=== PATIENT | male | born 1945 | race African-American/Black ===

== ENCOUNTER 2017-04-19 12:04 | Inpatient (IN) ==
[2017-04-19 19:06] LABS: Basophils % 0.4 % (0.0-0.8); Eosinophils # 0.1 10*3/uL (0.0-0.87); Eosinophils % 1.2 % (0.00-10.9); Hematocrit 35.4 VOL% (42.0-52.0); Hemoglobin 11.6 GM/DL (14.0-18.0); Immature Granulocytes % 0.4 %; Immature Granulocytes Absolute 0.03 #; Lymphocytes # 2.8 10*3/uL (1.4-4.0); Lymphocytes % 41.7 % (21.2-54.2); Mean Corpuscular HGB Conc 32.8 GM/DL (32-36); Mean Corpuscular Hemoglobin 31 PG (27-34); Mean Corpuscular Volume 93.7 FL (87-102); Mean Platelet Volume 9.8 FL (9.6-12.0); Monocytes # 0.7 10*3/uL (0.11-0.8); Monocytes % 9.6 % (1.7-12.7); Neutrophils # 3.2 10*3/uL (1.4-7.4); Neutrophils % 46.7 % (38.7-73.9); Platelet Count 203 T/CUMM (130-400); Red Blood Count 3.78 MC/CUMM (3.8-5.5); Red Cell Distribution Width 13.8 % (9.3-17.3); White Blood Count 6.8 T/CUMM (4-12)
[2017-04-19] MEDS: HEPARIN DRIP 25,000 UNITS/500 ML PREMIX IV SCH (19:20)
[2017-04-19] MEDS: SODIUM CHLORIDE 0.9% 1,000 ML IV SCH (19:20)
--- NOTE | 2017-04-19 19:40 | XRay Report ---
History: Coronary artery disease Date: 04/19/2017 Study: Chest x-ray AP portable Comparison exam: No previous The cardiac silhouette is not enlarged. There is no mediastinal mass. There is mild aortic arch calcification. The pulmonary vasculature is not engorged. The lungs and pleural spaces are clear. Osseous structures are unremarkable. Impression: No acute cardiopulmonary process. Shallow breath PROCEDURE INTERPRETED AT [facility] DEPARTMENT OF RADIOLOGY Final Report Signed by: Dr. Niharika Gross
[2017-04-19] MEDS ORDERED: HALOPERIDOL 5 MG/ML AMP IM ONE (20:44)
[2017-04-20 03:21] LABS: Basophils % 0.6 % (0.0-0.8); Eosinophils # 0.1 10*3/uL (0.0-0.87); Eosinophils % 1.4 % (0.00-10.9); Hemoglobin 11.1 GM/DL (14.0-18.0); Immature Granulocytes % 0.3 %; Immature Granulocytes Absolute 0.02 #; Lymphocytes # 3.1 10*3/uL (1.4-4.0); Lymphocytes % 43.4 % (21.2-54.2); Mean Corpuscular HGB Conc 33.6 GM/DL (32-36); Mean Corpuscular Hemoglobin 31 PG (27-34); Mean Corpuscular Volume 91.7 FL (87-102); Mean Platelet Volume 9.9 FL (9.6-12.0); Monocytes # 0.6 10*3/uL (0.11-0.8); Monocytes % 7.9 % (1.7-12.7); Neutrophils # 3.3 10*3/uL (1.4-7.4); Neutrophils % 46.4 % (38.7-73.9); Platelet Count 190 T/CUMM (130-400); Red Cell Distribution Width 13.7 % (9.3-17.3); White Blood Count 7.1 T/CUMM (4-12)
[2017-04-20 03:32] LABS: INR 1.1; PT Patient Result 11.2 SECS
[2017-04-20 03:33] LABS: Partial Thromboplastin Time 46.8 SECS (0-40)
[2017-04-20 08:27] LABS: INR 1.1; PT Patient Result 11.2 SECS
[2017-04-20 08:35] LABS: Partial Thromboplastin Time 46.1 SECS (0-40)
--- NOTE | 2017-04-20 10:03 | Cardiothoracic History & Phys ---
Assessment and Plan - Time spent with patient Time spent with patient: Greater than 30 minutes (1) Myocardial infarction Status: Acute Assessment and plan: Risk Model and Variables - STS Adult Cardiac Surgery Database Version 2.81 RISK SCORES About the STS Risk Calculator Procedure: CAB Only Risk of Mortality: 1.931% Morbidity or Mortality: 21.484% Long Length of Stay: 11.342% Short Length of Stay: 27.127% Permanent Stroke: 3.622% Prolonged Ventilation: 15.086% DSW Infection: 0.721% Renal Failure: 3.955% Reoperation: 8.109% 71-year-old gentleman transferred here from [facility] for cardiac surgery. The patient has three-vessel disease with completely occluded circumflex artery that is backfilling from collaterals from the right coronary artery. He presented with non-STEMI. Currently the patient is a symptomatic. The patient by report used to take Plavix in the past for his peripheral artery disease and he stopped it however he was given a dose unclear how much prior to that cath. At this point and since the patient is asymptomatic I will plan on doing his surgery on April 22 after I obtain platelet function tests. Risks benefits and alternatives of the surgery were discussed in details with the patient and the family and the understand and willing and eager to proceed. Of note the patient had a psychotic reaction to Versed that he was given during the cath procedure. We will avoid any benzodiazepines during his hospital stay. Current Visit: Yes History of Present Illness Chief complaint: Non-ST elevation myocardial for History of present illness: Mr. Bermudez is a 71 year old male who lives alone he has a history of CVA in the remote past most recently he started to have increasing shortness of breath and chest pain. He presented to [facility] at which point he was taken to the Department Clinician and was found to have a completely occluded circumflex artery as well as severe stenosis of his right main as well as left anterior descending arteries. At this point the patient is asymptomatic. I was consulted to evaluate if he is a surgical candidate. I transferred him to [place] for surgical intervention. Home Medications Medication Instructions Recorded Confirmed Type Amlodipine Besylate [Amlodipine 5 mg PO DAILY 04/19/17 04/19/17 History Besylate] Losartan/Hydrochlorothiazide 12.5 - 100 mg PO DAILY 04/19/17 04/19/17 History [Losartan-Hctz 100-12.5 mg Tab] Sertraline HCl [Sertraline HCl] 50 mg PO DAILY 04/19/17 04/19/17 History Aspirin [Aspirin EC] 81 mg PO DAILY 04/20/17 04/20/17 History Allergies Allergy/AdvReac Type Severity Reaction Status Date / Time No Known Allergies Allergy Verified 04/19/17 19:02 Medical,Surgical,& Family Hx - Medical History Cardio: History of: Cerebrovascular Disease, CHF, CAD, Hypertension, [place] Psychological: History of: Anxiety Disorders, Behavior Problems, Depression Neurology: History of: Cerebrovascular Accident, TIA HEENT: History of: Eye Problem (glasses), Glaucoma Respiratory: History of: COPD Gastrointestinal: History of: GERD Musculoskeletal: History of: Back/Neck Problems Hematology: History of: Clotting Problems (DVT right left 10 years ago) - Surgical History Cardiac Surgeries: Sugical HX of: Cardiac Catheterization (at [place], transferred for CABG on Saturday) - Family History Family History: Reports;: Family Heart Disease (mother 7 father) - Social History Smoking Status: Current every day smoker Frequency of Alcohol Use: None Type of Drug Use: None Cardiology Physical Exam - Constitutional Vitals: Vital Signs Temp Pulse Resp BP Pulse Ox 97 F L 53 L 15 161/78 93 L 04/20/17 04:00 04/20/17 06:00 04/20/17 06:00 04/20/17 06:00 04/20/17 06:00 Intake and Output 04/19/17 04/20/17 04/20/17 22:59 06:59 14:59 Intake Total 120 / 120 30 / 30 Output Total 100 / 100 175 / 175 Balance -100 / -100 -55 / -55 30 / 30 Intake: IV 120 / 120 30 / 30 Heparin Drip 25,000 Units 120 / 120 30 / 30 /500 ml25,000 units In 500 ml @ 12 UNITS/KG/HR 13.824 mls/hr IV TITRATE JOSSY Rx#:[id number] Output: Urine 100 / 100 175 / 175 Other: Voiding Method Urinal Urinal # Voids 0 Weight 57.6 kg 60.9 kg General appearance: normal weight, other (Anxious with some hand tremors) - Head Head exam: Present: normal inspection - ENT ENT exam: Present: normal exam - Neck Neck exam: Present: normal inspection - Respiratory Respiratory exam: Present: prolonged expiratory phase, wheezes - Cardiovascular Cardiovascular exam: Present: regular rate and rhythm - GI/Abdominal GI/Abdominal exam: Present: normal bowel sounds Result/EKG - Labs CBC & BMP: 04/20/17 03:09 Labs: Laboratory Results - last 24 hr 04/19/17 04/20/17 04/20/17 18:57 03:09 03:09 WBC 6.8 7.1 RBC 3.78 L 3.60 L Hgb 11.6 L 11.1 L Hct 35.4 L 33.0 L MCV 93.7 91.7 MCH 31 31 MCHC 32.8 33.6 RDW 13.8 13.7 Plt Count 203 190 MPV 9.8 9.9 Neut % (Auto) 46.7 46.4 Lymph % (Auto) 41.7 43.4 [place] % (Auto) 9.6 7.9 Eos % (Auto) 1.2 1.4 Baso % (Auto) 0.4 0.6 Neut # (Auto) 3.2 3.3 Lymph # (Auto) 2.8 3.1 [place] # (Auto) 0.7 0.6 Eos # (Auto) 0.1 0.1 Baso # (Auto) 0.0 0.0 Immature Gran % 0.4 0.3 Nucleated RBC % 0.0 0.0 Immature Gran # 0.03 0.02 Nucleated RBCs # 0.00 0.00 INR 1.1 PT Patient/Control Mix 11.2 Circ Anticoag PTT 46.8 H 04/20/17 06:58 WBC RBC Hgb Hct MCV MCH MCHC RDW Plt Count MPV Neut % (Auto) Lymph % (Auto) [place] % (Auto) Eos % (Auto) Baso % (Auto) Neut # (Auto) Lymph # (Auto) [place] # (Auto) Eos # (Auto) Baso # (Auto) Immature Gran % Nucleated RBC % Immature Gran # Nucleated RBCs # INR 1.1 PT Patient/Control Mix 11.2 Circ Anticoag PTT 46.1 H
--- NOTE | 2017-04-20 10:21 | EKG Report ---
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
[2017-04-20 10:24] LABS: Calcium 8.4 MG/DL (8.5-10.1); Osmolality,Calculated 277.7 MOS/KG (273-304); Potassium 3.9 MMOL/L (3.5-5.1)
[2017-04-20 10:27] LABS: Troponin I Only 2.09 NG/ML (0.00-0.045)
[2017-04-20 13:02] LABS: PT Patient Result 10.8 SECS
[2017-04-20] MEDS: amLODIPine 5 MG TABLET PO SCH (13:45)
[2017-04-20] MEDS: LOSARTAN/HCTZ 50-12.5 MG TABLET PO SCH (13:45)
[2017-04-20] MEDS: ASPIRIN EC 81 MG TABLET PO SCH (13:45)
[2017-04-20] MEDS ORDERED: hydrALAZINE 20 MG/1 ML VIAL IV ONE (15:23)
[2017-04-20] MEDS ORDERED: MORPHINE 2 MG/1 ML SYRINGE ONE ×2 (15:57→15:58)
[2017-04-20] MEDS ORDERED: NITROGLYCERIN SL 0.4 MG TABLET SL PRN (15:58)
[2017-04-20] MEDS ORDERED: NITROGLYCERIN SL 0.4 MG TABLET SL ONE (15:58)
[2017-04-20] MEDS ORDERED: MORPHINE 2 MG/1 ML SYRINGE IV ONE (16:00)
[2017-04-20] MEDS ORDERED: NITROGLYCERIN DRIP 50 MG/250 ML BOTTLE IV ONE (16:01)
--- NOTE | 2017-04-20 16:04 | EKG Report ---
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
[2017-04-20] MEDS ORDERED: MORPHINE 10 MG/1 ML VIAL IV PRN (16:09)
[2017-04-20] MEDS: NITROGLYCERIN DRIP 50 MG/250 ML BOTTLE IV SCH (16:10)
--- NOTE | 2017-04-20 16:17 | Cardiology Consult Note ---
Assessment and Plan (1) Non-STEMI (non-ST elevated myocardial infarction) Status: Acute Current Visit: Yes (2) Coronary artery disease Status: Acute Current Visit: Yes (3) Hypertension Status: Chronic Current Visit: Yes (4) Hyperlipidemia Status: Chronic Current Visit: Yes (5) Renal insufficiency Status: Chronic Current Visit: Yes (6) History of stroke Status: Chronic Current Visit: Yes History of Present Illness - Data of Consult Patient: new to practice Consult date: 04/20/17 Requesting Physician: Amador Mesa - Consult Narrative Reason for consult: CAD History of present illness: The patient is evaluated emergently in the ICU when a "heart alert" was called. Food Demonstrator: Dr. Curtis The patient is a 71-year-old black male who had no known coronary artery disease until recently, when he was admitted to [facility] with chest pain, and diagnosed with a non-ST elevation myocardial infarction. Comorbidities include hypertension, hyperlipidemia, possible dementia. He has a history of stroke or TIA in the remote past without residual neurologic deficit that he can describe. He underwent cardiac catheterization which revealed three-vessel coronary artery disease (proximal LAD 80-90% stenosis, obtuse marginal artery 100% stenosis with left to left collateralization, RCA 90% stenosis, LV gram EF 55% with inferolateral akinesis or dyskinesis). I do not see any record of an echocardiogram and carotid ultrasound from [facility]. The patient was transferred to [facility] in anticipation of Bypass surgery. He did receive some Plavix and there is a wait time imposed for this reason. In general, the patient cannot remember when he started having chest pain or how long he had been experiencing it prior to admission. It is described as a "pain " that he cannot further characterize, without clear radiation or associated symptoms. In the hospital today, while at rest he did develop some chest pain. We gave him nitroglycerin and this seemed to improve his symptoms. He is currently feeling much better. There was some associated ST depression on lead V5 through V6 which is new since admission. He denies any other recent acute illness. He has no other complaints today. Reportedly had a psychotic reaction to Versed in the [employer] at [place]. Impression and plan: 1. Coronary artery disease-this is three-vessel disease. He is anticipating coronary artery bypass grafting. He is currently on a heparin drip and has been experiencing some postinfarct angina. We are going to initiate a nitroglycerin drip. We can always consider adding Integrilin if necessary. I am going to order an echocardiogram and carotid ultrasound. 2. Hypertension-he is currently not on a beta-andie, presumably because he was bradycardic upon admission. We will see how he responds to the nitroglycerin drip and if necessary we will escalate antihypertensives if necessary. 3. Hyperlipidemia-we will treat with high-dose statins. CC: Amador Mesa - Home Medications and Allergies Home Medications: Home Medications Medication Instructions Recorded Confirmed Type Amlodipine Besylate [Amlodipine 5 mg PO DAILY 04/19/17 04/19/17 History Besylate] Losartan/Hydrochlorothiazide 12.5 - 100 mg PO DAILY 04/19/17 04/19/17 History [Losartan-Hctz 100-12.5 mg Tab] Sertraline HCl [Sertraline HCl] 50 mg PO DAILY 04/19/17 04/19/17 History Aspirin [Aspirin EC] 81 mg PO DAILY 04/20/17 04/20/17 History Allergies/Adverse Reactions: Allergies Allergy/AdvReac Type Severity Reaction Status Date / Time No Known Allergies Allergy Verified 04/19/17 19:02 12 point system: reviewed and no additional remarkable complaints except as stated Medical,Surgical,& Family Hx - Medical History Cardio: History of: Cerebrovascular Disease, CHF, CAD, Hypertension, [place] Psychological: History of: Anxiety Disorders, Behavior Problems, Depression Neurology: History of: Cerebrovascular Accident, TIA HEENT: History of: Eye Problem (glasses), Glaucoma Respiratory: History of: COPD Gastrointestinal: History of: GERD Musculoskeletal: History of: Back/Neck Problems Hematology: History of: Clotting Problems (DVT right left 10 years ago) - Surgical History Cardiac Surgeries: Sugical HX of: Cardiac Catheterization (at [place], transferred for CABG on Saturday) - Family History Family History: Reports;: Family Heart Disease (mother 7 father) - Social History Smoking Status: Current every day smoker Frequency of Alcohol Use: None Type of Drug Use: None Marital Status: Lives With:: Alone Functional capacity: independent ambulation Physical Examination Vital Signs Temp Pulse Resp BP Pulse Ox 98.4 F 51 L 16 124/73 99 04/19/17 18:56 04/19/17 18:56 04/19/17 18:56 04/19/17 18:56 04/19/17 18:56 Other: General appearance: normal weight, no acute distress - Head Head exam: Present: normal inspection, normocephalic, atraumatic. Absent: hematoma, laceration - Eye Eye exam: Present: EOMI. Absent: conjunctival injection, nystagmus, periorbital swelling, scleral icterus, laceration to eyelids Pupils: Present: PERRL. Absent: constricted, dilated, fixed, irregular, unequal - ENT ENT exam: Present: normal exam, normal external ear exam - Neck Neck exam: Present: normal inspection. Absent: lymphadenopathy, meningismus, tenderness, thyromegaly - Respiratory Respiratory exam: Present: clear to auscultation bilaterally. Absent: accessory muscle use, chest wall tenderness - Cardiovascular Cardiovascular exam: Present: regular rate and rhythm. Absent: carotid bruit, gallop, JVD, rubs - GI/Abdominal GI/Abdominal exam: Present: normal bowel sounds, soft. Absent: distended, firm , guarding, hernia, mass, tenderness, rebound. - Extremities Exam Extremities exam: Present: normal inspection, normal capillary refill. Absent: calf tenderness, edema - Back Exam Back exam: Present: normal inspection. Absent: muscle spasm, vertebral tenderness - Neurological Exam Neurological exam: Present: alert, oriented X3, grossly intact with mild resting tremor. - Psychiatric Psychiatric exam: Present: normal affect, normal mood - Skin Skin exam: Present: normal color, warm, dry, intact. Absent: cyanosis, diaphoretic, rash, urticaria Result/EKG - Labs CBC & BMP: 04/20/17 03:09 04/20/17 06:51 Lab Results: I have reviewed the past 24 hour labs Labs: Laboratory Results - last 24 hr 04/19/17 04/20/17 04/20/17 18:57 03:09 03:09 WBC 6.8 7.1 RBC 3.78 L 3.60 L Hgb 11.6 L 11.1 L Hct 35.4 L 33.0 L MCV 93.7 91.7 MCH 31 31 MCHC 32.8 33.6 RDW 13.8 13.7 Plt Count 203 190 MPV 9.8 9.9 Neut % (Auto) 46.7 46.4 Lymph % (Auto) 41.7 43.4 [place] % (Auto) 9.6 7.9 Eos % (Auto) 1.2 1.4 Baso % (Auto) 0.4 0.6 Neut # (Auto) 3.2 3.3 Lymph # (Auto) 2.8 3.1 [place] # (Auto) 0.7 0.6 Eos # (Auto) 0.1 0.1 Baso # (Auto) 0.0 0.0 Immature Gran % 0.4 0.3 Nucleated RBC % 0.0 0.0 Immature Gran # 0.03 0.02 Nucleated RBCs # 0.00 0.00 INR 1.1 PT Patient/Control Mix 11.2 Circ Anticoag PTT 46.8 H Sodium Potassium Chloride Carbon Dioxide Anion Gap BUN Creatinine GFR Calculation BUN/Creatinine Ratio Glucose Calculated Osmolality Calcium Magnesium Total Creatine Kinase Troponin I 04/20/17 04/20/17 04/20/17 06:51 06:58 12:47 WBC RBC Hgb Hct MCV MCH MCHC RDW Plt Count MPV Neut % (Auto) Lymph % (Auto) [place] % (Auto) Eos % (Auto) Baso % (Auto) Neut # (Auto) Lymph # (Auto) [place] # (Auto) Eos # (Auto) Baso # (Auto) Immature Gran % Nucleated RBC % Immature Gran # Nucleated RBCs # INR 1.1 1.0 PT Patient/Control Mix 11.2 10.8 Circ Anticoag PTT 46.1 H 49.0 H Sodium 138 Potassium 3.9 Chloride 102 Carbon Dioxide 27 Anion Gap 12.9 BUN 20 H Creatinine 1.50 H GFR Calculation 56 BUN/Creatinine Ratio 13.00 Glucose 92 Calculated Osmolality 277.7 Calcium 8.4 L Magnesium 2.0 Total Creatine Kinase 452 H Troponin I 2.090 H - Diagnostic Findings Procedure: Chest x-ray: report reviewed by me - EKG EKG results: interpreted by me, sinus rhythm (Lateral ST depression)
--- NOTE | 2017-04-20 16:33 | EKG Report ---
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
[2017-04-20 19:22] LABS: PT Patient Result 10.7 SECS
[2017-04-20 19:30] LABS: Partial Thromboplastin Time 48.4 SECS (0-40)
[2017-04-20] MEDS: HEPARIN DRIP 25,000 UNITS/500 ML PREMIX IV SCH (20:14)
[2017-04-20] MEDS: SODIUM CHLORIDE 0.9% 1,000 ML IV SCH (20:14)
--- NOTE | 2017-04-20 21:37 | Ultrasound Report ---
History: History of CVA. Preop CABG Date: 04/20/2017 Study: Carotid duplex ultrasound Comparison exam: No previous similar Color Doppler, wave form analysis, and grayscale analysis of the cervical carotid arteries was performed. There is mild partially calcified plaque in either carotid bulb. Waveform analysis shows proper directional flow of the cervical carotid arteries. There is antegrade flow in either vertebral artery. The distal right ICA measures 5.2 mm diameter; the left measures 4.6 mm diameter. Peak systolic velocities are as follows: Right CCA 52 cm/s Right ICA 103 cm/s Right ECA 167 cm/s Right vertebral 43 cm/s Right IC/CC ratio 2.0 Left CCA 68 cm/s Left ICA 65 cm/s Left ECA 150 cm/s Left vertebral 37 cm/s Left IC/CC ratio 1.0 There is 0-49 % diameter reduction narrowing of either internal carotid artery using indirect NASCET criteria. Ultrasound images were captured and archived. Impression: No hemodynamically significant internal carotid artery stenosis PROCEDURE INTERPRETED AT [facility] DEPARTMENT OF RADIOLOGY Final Report Signed by: Dr. Niharika Gross
[2017-04-20] MEDS: CHLORHEXIDINE 4% SOLN 118 ML BOTTLE TOP SCH (22:44)
[2017-04-21 01:34] LABS: Partial Thromboplastin Time 51.1 SECS (0-40)
[2017-04-21] MEDS: HEPARIN DRIP 25,000 UNITS/500 ML PREMIX IV SCH ×2 (03:13→20:08)
[2017-04-21 03:47] LABS: Basophils # 0.1 10*3/uL (0.0-0.2); Basophils % 0.8 % (0.0-0.8); Eosinophils # 0.1 10*3/uL (0.0-0.87); Eosinophils % 1.7 % (0.00-10.9); Hematocrit 35.3 VOL% (42.0-52.0); Hemoglobin 11.9 GM/DL (14.0-18.0); Immature Granulocytes % 0.2 %; Immature Granulocytes Absolute 0.01 #; Lymphocytes # 2.2 10*3/uL (1.4-4.0); Mean Corpuscular HGB Conc 33.7 GM/DL (32-36); Mean Corpuscular Hemoglobin 30 PG (27-34); Mean Corpuscular Volume 89.6 FL (87-102); Mean Platelet Volume 10.3 FL (9.6-12.0); Monocytes # 0.7 10*3/uL (0.11-0.8); Monocytes % 10.4 % (1.7-12.7); Neutrophils # 3.5 10*3/uL (1.4-7.4); Neutrophils % 53.9 % (38.7-73.9); Platelet Count 220 T/CUMM (130-400); Red Blood Count 3.94 MC/CUMM (3.8-5.5); Red Cell Distribution Width 13.8 % (9.3-17.3); White Blood Count 6.5 T/CUMM (4-12)
[2017-04-21 04:20] LABS: Calcium 9.1 MG/DL (8.5-10.1); Magnesium 2.2 MG/DL (1.8-2.4); Osmolality,Calculated 278.5 MOS/KG (273-304); Potassium 3.7 MMOL/L (3.5-5.1)
[2017-04-21] MEDS ORDERED: HEPARIN/NACL 0.9% 2 UNITS/ML 500 ML IV ONE (06:45)
[2017-04-21] MEDS: LOSARTAN/HCTZ 50-12.5 MG TABLET PO SCH (09:01)
[2017-04-21] MEDS: amLODIPine 5 MG TABLET PO SCH (09:01)
[2017-04-21] MEDS: ASPIRIN EC 81 MG TABLET PO SCH (09:01)
--- NOTE | 2017-04-21 09:10 | EKG Report ---
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
--- NOTE | 2017-04-21 09:50 | Cardiology Progress Note ---
Assessment and Plan (1) Non-STEMI (non-ST elevated myocardial infarction) Status: Acute Current Visit: Yes (2) Coronary artery disease Status: Acute Current Visit: Yes (3) Hypertension Status: Chronic Current Visit: Yes (4) Hyperlipidemia Status: Chronic Current Visit: Yes (5) Renal insufficiency Status: Chronic Current Visit: Yes (6) History of stroke Status: Chronic Current Visit: Yes Cardiology - PN: Subj Interval history: Seismic Prospecting Observer: Dr. Curtis Summary: The patient is a 71-year-old black male who had no known coronary artery disease until recently, when he was admitted to [facility] with non- ST elevation myocardial infarction. Comorbidities include hypertension, hyperlipidemia, possible dementia. He has a history of stroke or TIA in the remote past without residual neurologic deficit that he can describe. He has three-vessel coronary artery disease (proximal LAD 80-90% stenosis, obtuse marginal artery 100% stenosis with right to left collateralization, RCA 90% stenosis, LV gram EF 55% with inferolateral akinesis or dyskinesis). The patient was transferred to [facility] in anticipation of Bypass surgery. He did receive some Plavix and there is a wait time imposed for this reason. Reportedly had a psychotic reaction to Versed in the [employer] at [place]. April 21, 2017: The patient developed some postinfarct angina soon after arrival to our hospital. This is quiesced with the addition of nitroglycerin drip. He has had no recurrent symptoms and has no complaints this morning. He denies chest pain or shortness of breath. Impression and plan: 1. Coronary artery disease-this is three-vessel disease. He is anticipating coronary artery bypass grafting. This is stable on current therapy. 2. Hypertension-currently stable. 3. Hyperlipidemia-we will treat with high-dose statins. Exam (Progress Note) - Constitutional Vitals: Period Temp Pulse Resp BP Sys/Wang Pulse Ox Last 24 Hr 98.6 F-99.6 F 57-74 12-23 99-194/58-142 93-100 Exam: General appearance: normal weight, no acute distress - Head Head exam: Present: normal inspection, normocephalic, atraumatic. Absent: hematoma, laceration - Eye Eye exam: Present: EOMI. Absent: conjunctival injection, nystagmus, periorbital swelling, scleral icterus, laceration to eyelids Pupils: Present: PERRL. Absent: constricted, dilated, fixed, irregular, unequal - ENT ENT exam: Present: normal exam, normal external ear exam - Neck Neck exam: Present: normal inspection. Absent: lymphadenopathy, meningismus, tenderness, thyromegaly - Respiratory Respiratory exam: Present: clear to auscultation bilaterally. Absent: accessory muscle use, chest wall tenderness - Cardiovascular Cardiovascular exam: Present: regular rate and rhythm. Absent: carotid bruit, gallop, JVD, rubs - GI/Abdominal GI/Abdominal exam: Present: normal bowel sounds, soft. Absent: distended, firm , guarding, hernia, mass, tenderness, rebound. - Extremities Exam Extremities exam: Present: normal inspection, normal capillary refill. Absent: calf tenderness, edema - Back Exam Back exam: Present: normal inspection. Absent: muscle spasm, vertebral tenderness - Neurological Exam Neurological exam: Present: alert, oriented X3, grossly intact without resting or intention tremor - Psychiatric Psychiatric exam: Present: normal affect, normal mood - Skin Skin exam: Present: normal color, warm, dry, intact. Absent: cyanosis, diaphoretic, rash, urticaria Result/EKG - Labs CBC & BMP: 04/21/17 03:27 04/21/17 03:27 Lab Results: I have reviewed the past 24 hour labs Labs: Laboratory Results - last 24 hr 04/20/17 04/20/17 04/20/17 06:51 12:47 16:20 WBC RBC Hgb Hct MCV MCH MCHC RDW Plt Count MPV Neut % (Auto) Lymph % (Auto) [place] % (Auto) Eos % (Auto) Baso % (Auto) Neut # (Auto) Lymph # (Auto) [place] # (Auto) Eos # (Auto) Baso # (Auto) Immature Gran % Nucleated RBC % Immature Gran # Nucleated RBCs # INR 1.0 PT Patient/Control Mix 10.8 Circ Anticoag PTT 49.0 H Plt Func Screen - ADP Plt Func Scrn - Epineph Sodium 138 Potassium 3.9 Chloride 102 Carbon Dioxide 27 Anion Gap 12.9 BUN 20 H Creatinine 1.50 H GFR Calculation 56 BUN/Creatinine Ratio 13.00 Glucose 92 Calculated Osmolality 277.7 Calcium 8.4 L Magnesium 2.0 Total Creatine Kinase 452 H 384 H CK-MB (CK-2) 3.1 Troponin I 2.090 H 1.640 H D Blood Type Antibody Screen Crossmatch 04/20/17 04/20/17 04/21/17 19:04 22:52 00:57 WBC RBC Hgb Hct MCV MCH MCHC RDW Plt Count MPV Neut % (Auto) Lymph % (Auto) [place] % (Auto) Eos % (Auto) Baso % (Auto) Neut # (Auto) Lymph # (Auto) [place] # (Auto) Eos # (Auto) Baso # (Auto) Immature Gran % Nucleated RBC % Immature Gran # Nucleated RBCs # INR 1.0 1.0 PT Patient/Control Mix 10.7 11.0 Circ Anticoag PTT 48.4 H 51.1 H Plt Func Screen - ADP Plt Func Scrn - Epineph Sodium Potassium Chloride Carbon Dioxide Anion Gap BUN Creatinine GFR Calculation BUN/Creatinine Ratio Glucose Calculated Osmolality Calcium Magnesium Total Creatine Kinase 303 D CK-MB (CK-2) 3.1 Troponin I 1.640 H Blood Type Antibody Screen Crossmatch 04/21/17 04/21/17 04/21/17 03:26 03:27 03:27 WBC 6.5 RBC 3.94 Hgb 11.9 L Hct 35.3 L MCV 89.6 MCH 30 MCHC 33.7 RDW 13.8 Plt Count 220 MPV 10.3 Neut % (Auto) 53.9 Lymph % (Auto) 33.0 [place] % (Auto) 10.4 Eos % (Auto) 1.7 Baso % (Auto) 0.8 Neut # (Auto) 3.5 Lymph # (Auto) 2.2 [place] # (Auto) 0.7 Eos # (Auto) 0.1 Baso # (Auto) 0.1 Immature Gran % 0.2 Nucleated RBC % 0.0 Immature Gran # 0.01 Nucleated RBCs # 0.00 INR PT Patient/Control Mix Circ Anticoag PTT Plt Func Screen - ADP 226 H Plt Func Scrn - Epineph 115 H Sodium Potassium Chloride Carbon Dioxide Anion Gap BUN Creatinine GFR Calculation BUN/Creatinine Ratio Glucose Calculated Osmolality Calcium Magnesium Total Creatine Kinase CK-MB (CK-2) Troponin I Blood Type A POSITIVE Antibody Screen Negative Crossmatch See Detail 04/21/17 04/21/17 04/21/17 03:27 03:27 03:52 WBC RBC Hgb Hct MCV MCH MCHC RDW Plt Count MPV Neut % (Auto) Lymph % (Auto) [place] % (Auto) Eos % (Auto) Baso % (Auto) Neut # (Auto) Lymph # (Auto) [place] # (Auto) Eos # (Auto) Baso # (Auto) Immature Gran % Nucleated RBC % Immature Gran # Nucleated RBCs # INR PT Patient/Control Mix Circ Anticoag PTT Plt Func Screen - ADP Plt Func Scrn - Epineph Sodium 139 Potassium 3.7 Chloride 103 Carbon Dioxide 22 Anion Gap 17.7 H BUN 19 H Creatinine 1.30 GFR Calculation 67 BUN/Creatinine Ratio 14.00 Glucose 105 Calculated Osmolality 278.5 Calcium 9.1 Magnesium 2.2 Total Creatine Kinase 289 CK-MB (CK-2) 3.4 Troponin I 1.720 H Blood Type A POSITIVE Antibody Screen Crossmatch 04/21/17 07:56 WBC RBC Hgb Hct MCV MCH MCHC RDW Plt Count MPV Neut % (Auto) Lymph % (Auto) [place] % (Auto) Eos % (Auto) Baso % (Auto) Neut # (Auto) Lymph # (Auto) [place] # (Auto) Eos # (Auto) Baso # (Auto) Immature Gran % Nucleated RBC % Immature Gran # Nucleated RBCs # INR PT Patient/Control Mix Circ Anticoag PTT 53.3 H Plt Func Screen - ADP Plt Func Scrn - Epineph Sodium Potassium Chloride Carbon Dioxide Anion Gap BUN Creatinine GFR Calculation BUN/Creatinine Ratio Glucose Calculated Osmolality Calcium Magnesium Total Creatine Kinase CK-MB (CK-2) Troponin I Blood Type Antibody Screen Crossmatch
[2017-04-21] MEDS: CHLORHEXIDINE 4% SOLN 118 ML BOTTLE TOP SCH ×2 (10:36→18:32)
--- NOTE | 2017-04-21 11:12 | Cardiothoracic Progress Note ---
Assessment and Plan (1) Myocardial infarction Status: Acute Assessment and plan: 71-year-old gentleman with a non-ST elevation myocardial infarction with severe 3 vessel coronary artery disease. The patient was transferred to [place] for coronary artery bypass graft. Yesterday he had a very transient episode of chest pain that relieved immediately with nitroglycerin. We will proceed with the surgery on April 22. Current Visit: Yes Exam (Progress Note) - Constitutional Vitals: Period Temp Pulse Resp BP Sys/Wang Pulse Ox Last 24 Hr 98.6 F-99.6 F 57-74 12-23 99-194/58-142 93-100 Result/EKG - Labs CBC & BMP: 04/21/17 03:27 04/21/17 03:27 Labs: Laboratory Results - last 24 hr 04/20/17 04/20/17 04/20/17 12:47 16:20 19:04 WBC RBC Hgb Hct MCV MCH MCHC RDW Plt Count MPV Neut % (Auto) Lymph % (Auto) [place] % (Auto) Eos % (Auto) Baso % (Auto) Neut # (Auto) Lymph # (Auto) [place] # (Auto) Eos # (Auto) Baso # (Auto) Immature Gran % Nucleated RBC % Immature Gran # Nucleated RBCs # INR 1.0 1.0 PT Patient/Control Mix 10.8 10.7 Circ Anticoag PTT 49.0 H 48.4 H Plt Func Screen - ADP Plt Func Scrn - Epineph Sodium Potassium Chloride Carbon Dioxide Anion Gap BUN Creatinine GFR Calculation BUN/Creatinine Ratio Glucose Calculated Osmolality Calcium Magnesium Total Creatine Kinase 384 H CK-MB (CK-2) 3.1 Troponin I 1.640 H D Blood Type Antibody Screen Crossmatch 04/20/17 04/21/17 04/21/17 22:52 00:57 03:26 WBC RBC Hgb Hct MCV MCH MCHC RDW Plt Count MPV Neut % (Auto) Lymph % (Auto) [place] % (Auto) Eos % (Auto) Baso % (Auto) Neut # (Auto) Lymph # (Auto) [place] # (Auto) Eos # (Auto) Baso # (Auto) Immature Gran % Nucleated RBC % Immature Gran # Nucleated RBCs # INR 1.0 PT Patient/Control Mix 11.0 Circ Anticoag PTT 51.1 H Plt Func Screen - ADP 226 H Plt Func Scrn - Epineph 115 H Sodium Potassium Chloride Carbon Dioxide Anion Gap BUN Creatinine GFR Calculation BUN/Creatinine Ratio Glucose Calculated Osmolality Calcium Magnesium Total Creatine Kinase 303 D CK-MB (CK-2) 3.1 Troponin I 1.640 H Blood Type Antibody Screen Crossmatch 04/21/17 04/21/17 04/21/17 03:27 03:27 03:27 WBC 6.5 RBC 3.94 Hgb 11.9 L Hct 35.3 L MCV 89.6 MCH 30 MCHC 33.7 RDW 13.8 Plt Count 220 MPV 10.3 Neut % (Auto) 53.9 Lymph % (Auto) 33.0 [place] % (Auto) 10.4 Eos % (Auto) 1.7 Baso % (Auto) 0.8 Neut # (Auto) 3.5 Lymph # (Auto) 2.2 [place] # (Auto) 0.7 Eos # (Auto) 0.1 Baso # (Auto) 0.1 Immature Gran % 0.2 Nucleated RBC % 0.0 Immature Gran # 0.01 Nucleated RBCs # 0.00 INR PT Patient/Control Mix Circ Anticoag PTT Plt Func Screen - ADP Plt Func Scrn - Epineph Sodium 139 Potassium 3.7 Chloride 103 Carbon Dioxide 22 Anion Gap 17.7 H BUN 19 H Creatinine 1.30 GFR Calculation 67 BUN/Creatinine Ratio 14.00 Glucose 105 Calculated Osmolality 278.5 Calcium 9.1 Magnesium 2.2 Total Creatine Kinase CK-MB (CK-2) Troponin I Blood Type A POSITIVE Antibody Screen Negative Crossmatch See Detail 04/21/17 04/21/17 04/21/17 03:27 03:52 07:56 WBC RBC Hgb Hct MCV MCH MCHC RDW Plt Count MPV Neut % (Auto) Lymph % (Auto) [place] % (Auto) Eos % (Auto) Baso % (Auto) Neut # (Auto) Lymph # (Auto) [place] # (Auto) Eos # (Auto) Baso # (Auto) Immature Gran % Nucleated RBC % Immature Gran # Nucleated RBCs # INR PT Patient/Control Mix Circ Anticoag PTT 53.3 H Plt Func Screen - ADP Plt Func Scrn - Epineph Sodium Potassium Chloride Carbon Dioxide Anion Gap BUN Creatinine GFR Calculation BUN/Creatinine Ratio Glucose Calculated Osmolality Calcium Magnesium Total Creatine Kinase 289 CK-MB (CK-2) 3.4 Troponin I 1.720 H Blood Type A POSITIVE Antibody Screen Crossmatch
--- NOTE | 2017-04-21 16:04 | ECHO Report ---
Samson Bermudez Exam Date: 04/21/2017 09:01 Referring Physician: Technologist: Magui Howard Age: 71 Ht (in): 74 Wt (lb): 134 Gender: M Exam Location: [facility] Echo Indications: CAD, [place], Non STEMI, HTN, hyperlipidemia, renal insuff., Hx. CVA BP: 145 / 62 HR: 74 Rhythm: Other Technical Quality: Fair IMPRESSIONS Normal LV systolic function with regional wall motion as described below, action fraction 55-60%. Grade 1 sort out dysfunction. Mild to moderate concentric left ventricular hypertrophy. Mild mitral and tricuspid regurgitation. Aortic sclerosis without stenosis. MEASUREMENTS (Male / Female) Normal Values 2D ECHO LV Diastolic Diameter PLAX 3.8 cm 4.2 - 5.9 / 3.9 - 5.3 cm LV Systolic Diameter PLAX 2.0 cm LV Fractional Shortening PLAX 47.5 % IVS Diastolic Thickness 1.5 cm 0.6 - 1.0 / 0.6 - 0.9 cm LVPW Diastolic Thickness 1.3 cm 0.6 - 1.0 / 0.6 - 0.9 cm RV Internal Dim ED PLAX 0.0 cm Aortic Root Diameter 3.1 cm LA Systolic Diameter LX 3.0 cm 3.0 - 4.0 / 2.7 - 3.8 cm DOPPLER TR Peak Velocity 206.0 cm/s TR Peak Gradient 17.0 mmHg FINDINGS Left Ventricle Moderately increased septal wall thickness. Mild concentric left ventricular hypertrophy with diastolic dysfunction. Left ventricular ejection fraction is estimated at 55-60 %. The basal to mid inferior wall appears severely hypokinetic if not akinetic, the distal inferior wall is moderately severely hypokinetic. Right Ventricle Normal right ventricular size and systolic function. Right Atrium Normal right atrial size. Left Atrium Normal left atrial size. Mitral Valve Mild mitral valve sclerosis. Mild mitral valve regurgitation. Aortic Valve Mild aortic valve sclerosis without stenosis or regurgitation. Tricuspid Valve Morphologically normal tricuspid valve. Mild tricuspid valve regurgitation. Tricuspid regurgitation velocities suggest a PAP of 27 mmHg. Pulmonic Valve Pulmonic valve not well visualized. Pericardium No pericardial effusion. Aorta Normal size aortic root and proximal ascending aorta. Doretha Rodriguez MD (Electronically Signed) Final Date: 21 Apr 2017 16:03
[2017-04-21 16:08] LABS: ABG Base Excess 2.7 MMOL/L (-2.5-2.5); ABG HCO3 25.1 MMOL/L (20-26); ABG Oxygen Saturation 95.5 % (95-100); ABG PCO2 31.4 MM HG (35-48); ABG PO2 75.6 MM HG (80-95); Allen Test Positive; Pt O2 Delivery Device Room Air
[2017-04-21] MEDS: NITROGLYCERIN DRIP 50 MG/250 ML BOTTLE IV SCH (18:19)
[2017-04-21] MEDS: SODIUM CHLORIDE 0.9% 1,000 ML IV SCH ×2 (20:09→21:51)
[2017-04-21] MEDS: CHLORHEXIDINE 0.12% ORAL RINSE 60 ML BOTTLE SWISH/SPIT SCH (21:49)
[2017-04-22] MEDS ORDERED: CEFUROXIME INJ 1,500 MG in SODIUM CHLORIDE 0.9% 100 ML IV ONE ×2 (00:01→06:00)
[2017-04-22] MEDS ORDERED: TISSUE ADHESIVE 1 EACH APPLICATOR TOP ONE (04:43)
[2017-04-22] MEDS ORDERED: PAPAVERINE 60 MG/2 ML VIAL ONE (04:43)
[2017-04-22] MEDS ORDERED: VANCOMYCIN 1,000 MG VIAL ONE (04:44)
[2017-04-22 05:00] LABS: Basophils % 0.4 % (0.0-0.8); Eosinophils # 0.2 10*3/uL (0.0-0.87); Eosinophils % 2.6 % (0.00-10.9); Hemoglobin 11.5 GM/DL (14.0-18.0); Immature Granulocytes % 0.3 %; Immature Granulocytes Absolute 0.02 #; Lymphocytes # 2.7 10*3/uL (1.4-4.0); Lymphocytes % 36.7 % (21.2-54.2); Mean Corpuscular HGB Conc 33.8 GM/DL (32-36); Mean Corpuscular Hemoglobin 31 PG (27-34); Mean Corpuscular Volume 90.9 FL (87-102); Mean Platelet Volume 10.4 FL (9.6-12.0); Monocytes # 0.8 10*3/uL (0.11-0.8); Monocytes % 10.9 % (1.7-12.7); Neutrophils # 3.6 10*3/uL (1.4-7.4); Neutrophils % 49.1 % (38.7-73.9); Platelet Count 204 T/CUMM (130-400); Red Blood Count 3.74 MC/CUMM (3.8-5.5); Red Cell Distribution Width 13.9 % (9.3-17.3); White Blood Count 7.3 T/CUMM (4-12)
[2017-04-22 05:04] LABS: PT Patient Result 10.6 SECS; Partial Thromboplastin Time 27.6 SECS (0-40)
[2017-04-22 05:17] LABS: Calcium 8.3 MG/DL (8.5-10.1); Magnesium 2.1 MG/DL (1.8-2.4); Osmolality,Calculated 278.7 MOS/KG (273-304)
[2017-04-22] MEDS ORDERED: IPRATROPIUM 500 MCG/2.5 ML NEB RESP TX ONE (05:30)
[2017-04-22] MEDS ORDERED: LORazepam 1 MG TABLET PO ONE (05:30)
[2017-04-22] MEDS ORDERED: FAMOTIDINE 20 MG TABLET PO ONE (05:30)
[2017-04-22] MEDS ORDERED: ALBUTEROL 2.5 MG/3 ML NEB RESP TX ONE (05:38)
[2017-04-22] MEDS ORDERED: LIDOCAINE 2% 5 ML VIAL ONE (06:45)
[2017-04-22] MEDS ORDERED: AMINOCAPROIC ACID 5,000 MG/20 ML VIAL IV ONE (06:45)
[2017-04-22] MEDS ORDERED: MINERAL OIL/PETROLATUM OPH OINT 3.5 GM TUBE ONE (06:45)
[2017-04-22] MEDS ORDERED: NITROGLYCERIN 50 MG/250 ML BOTTLE IV ONE (06:45)
[2017-04-22] MEDS ORDERED: PHENYLEPHRINE 1 MG/10 ML SYRINGE IV ONE (06:45)
[2017-04-22] MEDS ORDERED: ETOMIDATE 20 MG/10 ML VIAL IV ONE (06:45)
[2017-04-22] MEDS ORDERED: CALCIUM CHLORIDE 1,000 MG/10 ML SYRINGE IV ONE (06:45)
[2017-04-22] MEDS ORDERED: KETOROLAC 30 MG/1 ML VIAL ONE (06:45)
[2017-04-22] MEDS ORDERED: ONDANSETRON 4 MG/2 ML VIAL ONE (06:45)
[2017-04-22] MEDS ORDERED: ROCURONIUM 100 MG/10 ML VIAL IV ONE (06:45)
[2017-04-22] MEDS ORDERED: AMIODARONE 150 MG/3 ML VIAL ONE (06:45)
[2017-04-22] MEDS ORDERED: SODIUM BICARBONATE 50 MEQ/50 ML VIAL IV ONE ×2 (06:45→10:28)
[2017-04-22] MEDS ORDERED: PHENYLEPHRINE 20 MG/250 ML PREMIX IV ONE (06:45)
[2017-04-22 07:32] LABS: ABG Base Excess -0.4 MMOL/L (-2.5-2.5); ABG HCO3 22.2 MMOL/L (20-26); ABG Oxygen Saturation 99.3 % (95-100); ABG PCO2 29.6 MM HG (35-48); ABG PH 7.492 (7.35-7.45); ABG PO2 484.9 MM HG (80-95); ABG TCO2 23.1 MMOL/L (23-27); Glucose Heart Surgery 105 MG/DL (74-106); Hemoglobin Heart Surgery 11.4 G/DL (14.0-18.0); Ionized Calcium Arterial 1.11 MMOL/L (1.21-1.46); PCO2 Patient Temp Arterial 29.6 MMHG; PH Patient Temp Arterial 7.492; PO2 Patient Temp Arterial 484.9 MM HG; Patient Temperature 37 CELCIUS; Potassium Heart/CVR 3.6 MMOL/L (3.5-5.1); Sodium Heart/CVR 135 MMOL/L (135-145)
[2017-04-22 08:01] LABS: Apearance,Urine CLEAR (Clear); Bilirubin,Urine Negative (Negative); Blood, Urine Large mg/dL (Negative); Glucose,Urine (UA) Negative (Negative); Ketones,Urine Negative (Negative); Nitrite,Urine Negative (Negative); Protein,Urine Negative; RBC,Urine 63 /HPF (0-4); Squamous Epithelial Cell,Urine Occasional /HPF (0-10); Urine Color Yellow (Yellow); Urine Specific Gravity 1.012 (1.001-1.035); Urine Urobilinogen < 2.0 EU/DL (0.2-1.0); WBC,Urine 2 /HPF (0-6)
[2017-04-22 08:52] LABS: Hemoglobin Heart Surgery 6.6 G/DL (14.0-18.0); PCO2 Patient Temp Venous 28.6 MM HG; PH Patient Temp Venous 7.494; Potassium Heart/CVR 3.7 MMOL/L (3.5-5.1); VBG Base Excess -1.7 MEQ/L (0-4); VBG HCO3 22.1 MEQ/L (24-28); VBG Oxygen Saturation 78.6 %; VBG PCO2 32.6 MMHG (41-51); VBG PH 7.449; VBG PO2 43.2 MMHG (17-40)
[2017-04-22] MEDS ORDERED: POTASSIUM CHLORIDE RIDER 100 ML IV ONE (09:10)
[2017-04-22] MEDS ORDERED: ALBUMIN 5% 12.5 GM/250 ML VIAL IV ONE (09:10)
[2017-04-22 09:36] LABS: Hemoglobin Heart Surgery 7.7 G/DL (14.0-18.0); PCO2 Patient Temp Venous 27.5 MM HG; PH Patient Temp Venous 7.5; PO2 Patient Temp Venous 40.3 MM HG; Potassium Heart/CVR 4.7 MMOL/L (3.5-5.1); VBG Base Excess -1.9 MEQ/L (0-4); VBG HCO3 21.3 MEQ/L (24-28); VBG Oxygen Saturation 83.8 %; VBG PH 7.47; VBG PO2 46.4 MMHG (17-40)
[2017-04-22 10:17] LABS: ABG Base Excess -3.8 MMOL/L (-2.5-2.5); ABG HCO3 20.3 MMOL/L (20-26); ABG Oxygen Saturation 98.8 % (95-100); ABG PCO2 32.9 MM HG (35-48); ABG PH 7.409 (7.35-7.45); ABG PO2 349.7 MM HG (80-95); ABG TCO2 21.3 MMOL/L (23-27); Glucose Heart Surgery 229 MG/DL (74-106); Hemoglobin Heart Surgery 8.8 G/DL (14.0-18.0); Ionized Calcium Arterial 1.18 MMOL/L (1.21-1.46); PCO2 Patient Temp Arterial 32.9 MMHG; PH Patient Temp Arterial 7.409; PO2 Patient Temp Arterial 349.7 MM HG; Patient Temperature 37 CELCIUS; Potassium Heart/CVR 3.7 MMOL/L (3.5-5.1); Sodium Heart/CVR 128 MMOL/L (135-145)
[2017-04-22] MEDS ORDERED: PHENYLEPHRINE DRIP 20 MG/250 ML PREMIX IV ONE (10:27)
[2017-04-22] MEDS ORDERED: MAGNESIUM SULFATE 1 GM/2 ML VIAL ONE (10:28)
[2017-04-22] MEDS ORDERED: ALBUMIN 25% 25 GM/100 ML VIAL IV ONE (10:28)
[2017-04-22] MEDS ORDERED: MANNITOL 12.5 GM/50 ML VIAL IV ONE (10:28)
[2017-04-22] MEDS ORDERED: methylPREDNISolone SOD SUC 1,000 MG/8 ML VIAL ONE (10:28)
[2017-04-22] MEDS ORDERED: PROTAMINE SULFATE 250 MG/25 ML VIAL IV ONE (10:28)
[2017-04-22] MEDS ORDERED: DEXTROSE 5% KCL 20 MEQ 40 MEQ/2,000 ML BAG IV ONE (10:28)
[2017-04-22] MEDS ORDERED: HEPARIN 10,000 UNIT/10 ML VIAL ONE (10:28)
[2017-04-22] MEDS ORDERED: FUROSEMIDE 20 MG/2 ML VIAL ONE (10:28)
[2017-04-22] MEDS ORDERED: POTASSIUM CHLORIDE 20 MEQ/10 ML VIAL ONE (10:28)
[2017-04-22] MEDS ORDERED: SODIUM CHLORIDE 0.9% 250 ML IV PRN (11:01)
[2017-04-22] MEDS ORDERED: CHLORHEXIDINE 4% SOLN 118 ML BOTTLE TOP PRN (11:01)
[2017-04-22] MEDS ORDERED: MORPHINE 10 MG/1 ML VIAL IV PRN (11:01)
[2017-04-22] MEDS ORDERED: MAGNESIUM SULF RIDER 4 GM in PREMIX 1 EACH IV PRN (11:01)
[2017-04-22] MEDS ORDERED: POTASSIUM CHLORIDE RIDER 10 MEQ in PREMIX 1 EACH IV PRN (11:01)
[2017-04-22] MEDS ORDERED: DEXTROSE 50% 25 GM/50 ML VIAL IV PRN ×3 (11:01→13:44)
[2017-04-22] MEDS ORDERED: MIDAZOLAM 2 MG/2 ML VIAL IV PRN (11:01)
[2017-04-22] MEDS ORDERED: ONDANSETRON 4 MG/2 ML VIAL IV PRN (11:01)
[2017-04-22] MEDS ORDERED: CALCIUM CHLORIDE 1,000 MG/10 ML SYRINGE IV PRN (11:01)
[2017-04-22] MEDS ORDERED: INSULIN REGULAR 100 UNIT/ML IV PRN (11:01)
[2017-04-22] MEDS ORDERED: ACETAMINOPHEN 650 MG SUPP RECTAL PRN (11:01)
[2017-04-22] MEDS ORDERED: SEVOFLURANE 1 UNIT/15 MINUTE INH ONE (11:09)
[2017-04-22] MEDS ORDERED: ACETAMINOPHEN 1,000 MG/100 ML VIAL IV ONE (11:10)
[2017-04-22] MEDS ORDERED: LACTATED RINGERS 2,000 ML IV ONE (11:10)
[2017-04-22] MEDS ORDERED: ePHEDrine 50 MG/ML AMP ONE (11:10)
[2017-04-22] MEDS ORDERED: SODIUM CHLORIDE 0.9% 1,000 ML IV ONE (11:10)
[2017-04-22] MEDS ORDERED: SODIUM CHLORIDE 0.9% 250 ML IV ONE (11:10)
[2017-04-22] MEDS: SODIUM CHLORIDE 0.45% 1,000 ML IV SCH ×3 (11:15→22:49)
--- NOTE | 2017-04-22 11:26 | Operative Note ---
Date of procedure: 04/22/17 Pre-op diagnosis: Non-ST elevation myocardial infarction with severe coronary artery disease Post-op diagnosis: same Procedure: Procedure: 1. Conway of right and left great saphenous vein 2. Conway of the left internal mammary artery 3. Institution of cardiopulmonary bypass 4. Coronary artery bypass graft x 3, FINNEY to LAD, saphenous vein graft to the right main coronary artery, saphenous vein graft to the second obtuse marginal artery Findings: Extensive disease was found along the course of the right main proximally as well as locations over the LAD and the circumflex. I was able to find a reasonable target on each vessel. Of note the aorta was found to have extensive soft atheromatous plaques along the ascending aorta. Some debris were noted coming out through the root vent while on suction. Details of the procedure: The patient was brought into the OR table and placed supine and general endotracheal anesthesia was induced without any problems. Timeout was performed. Antibiotics were given. The chest was prepped and draped in the fashion. Midline incision was made on the chest. The sternum was opened. Hemostasis was achieved. I dissected down the left internal mammary artery in its entirety from the first rib all the way down to the xiphisternum. I then inserted and angled chest tube to the left chest. After that, I turned my attention to opening the pericardium. I exposed the heart and aorta. I then started placing the pericardial stitches. Heparin was given. I then cannulating the proximal arch of the aorta. After that I cannulated the right atrium to the IVC. I then proceeded with preparing the mammary. I then made my pericardial window. Started the cardiopulmonary bypass. I inserted the cardioplegia needle. Cross-clamp was applied. Cardioplegia was given. The heart was arrested successfully. I then identified the right main coronary artery. Distal anastomosis was achieved between saphenous vein and the right main coronary artery with a 7-0 Prolene. It was tested and it was in good condition. I then gave 200 cc of cardioplegia down the right main coronary graft. I then moved my attention to the second obtuse margin artery. It was diseased except for the distal segment. I identified that segment and the open-ended. This anastomosis was again achieved between second saphenous vein and the artery. This was tested and it was condition. I then started rewarming the patient and t distal anastomosis was achieved between the FINNEY and LAD. The LAD was diseased proximally and in the midsection. I made anastomosis to distal to that. I then removed the lamp and the heart recovered well to sinus rhythm. I then instituted the proximal anastomosis to the second obtuse marginal graft then to the RCA graft. Hemostasis was achieved. I weaned the patient from bypass in good condition. Protamine was given. Hemostasis was achieved. All counts were correct at the end of the procedure. The patient was decannulated successfully. Chest tube were inserted. The sternum was closed using wires. Subcutaneous tissues closed uterine using running PDS. 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 The patient was transferred to ICU in good condition. Anesthesia: MARYA Surgeon / Physician: Amador Mesa Estimated blood loss: other (CPB) Tourniquet Time (Minutes): 45 Specimens: none sent Condition: stable Disposition: ICU Results - Labs CBC & BMP: 04/22/17 10:13 04/22/17 04:02 Discharge Plan - Discharge Medications No Action Sertraline HCl [Sertraline HCl] 50 mg PO DAILY Losartan/Hydrochlorothiazide [Losartan-Hctz 100-12.5 mg Tab] 12.5 - 100 mg PO DAILY Amlodipine Besylate [Amlodipine Besylate] 5 mg PO DAILY Aspirin [Aspirin EC] 81 mg PO DAILY - Follow Up or Referral - Forms/Instructions
[2017-04-22] MEDS: ASPIRIN EC 81 MG TABLET PO SCH (11:27)
[2017-04-22] MEDS: amLODIPine 5 MG TABLET PO SCH (11:28)
[2017-04-22] MEDS: CHLORHEXIDINE 0.12% ORAL RINSE 60 ML BOTTLE SWISH/SPIT SCH (11:28)
[2017-04-22] MEDS: LOSARTAN/HCTZ 50-12.5 MG TABLET PO SCH (11:28)
[2017-04-22 11:33] LABS: ABG Base Excess -2.3 MMOL/L (-2.5-2.5); ABG HCO3 22.8 MMOL/L (20-26); ABG Oxygen Saturation 97.1 % (95-100); ABG PCO2 40.5 MM HG (35-48); ABG PH 7.368 (7.35-7.45); Glucose Heart Surgery 134 MG/DL (74-106); Hemoglobin Heart Surgery 10.8 G/DL (14.0-18.0); Potassium Heart/CVR 3.5 MMOL/L (3.5-5.1)
[2017-04-22 11:39] LABS: Basophils % 0.3 % (0.0-0.8); Eosinophils # 0.1 10*3/uL (0.0-0.87); Eosinophils % 0.5 % (0.00-10.9); Hematocrit 29.7 VOL% (42.0-52.0); Immature Granulocytes % 0.6 %; Immature Granulocytes Absolute 0.07 #; Lymphocytes # 1.1 10*3/uL (1.4-4.0); Lymphocytes % 8.8 % (21.2-54.2); Mean Corpuscular HGB Conc 33.7 GM/DL (32-36); Mean Corpuscular Hemoglobin 31 PG (27-34); Mean Corpuscular Volume 91.7 FL (87-102); Mean Platelet Volume 10.4 FL (9.6-12.0); Monocytes # 0.8 10*3/uL (0.11-0.8); Monocytes % 6.3 % (1.7-12.7); Neutrophils % 83.5 % (38.7-73.9); Platelet Count 128 T/CUMM (130-400); Red Blood Count 3.24 MC/CUMM (3.8-5.5); Red Cell Distribution Width 14.1 % (9.3-17.3)
--- NOTE | 2017-04-22 11:47 | XRay Report ---
Portable chest Date: 04/22/2017 Clinical history: Endotracheal tube and line placement Comparison: 04/19/2017 Technique: Portable AP sitting chest Findings: Interval median sternotomy with the heart larger in size. The endotracheal tube, nasogastric tube, right IJ CVP line, and mediastinal chest tubes appear to be in satisfactory position. No significant pneumothorax. Progressive parenchymal findings especially at the lung bases with small to moderate right pleural effusion. Degenerative changes noted. Impression: Interval median sternotomy with support devices in satisfactory position. No significant pneumothorax is identified on this supine film. Atelectasis/edema in the lungs with small to moderate right pleural effusion. PROCEDURE INTERPRETED AT [facility] DEPARTMENT OF RADIOLOGY Final Report Signed by: Dr. Caroline Albright
[2017-04-22 11:50] LABS: INR 1.2; PT Patient Result 12.4 SECS; Partial Thromboplastin Time 30.2 SECS (0-40)
[2017-04-22] MEDS: SODIUM CHLORIDE 0.9% 1,000 ML IV PRN ×2 (12:00→15:34)
[2017-04-22 12:03] LABS: Magnesium 1.8 MG/DL (1.8-2.4); Osmolality,Calculated 281.5 MOS/KG (273-304); Potassium 3.6 MMOL/L (3.5-5.1)
[2017-04-22 12:08] LABS: Lactic Acid 4.4 MMOL/L (0.4-2.0)
[2017-04-22] MEDS: POTASSIUM CHLORIDE RIDER 20 MEQ in PREMIX 1 EACH IV PRN ×2 (12:18→14:50)
[2017-04-22] MEDS: ALBUMIN 5% 12.5 GM in PREMIX 1 EACH IV PRN ×4 (13:05→15:53)
[2017-04-22] MEDS ORDERED: GLUCAGON 1 MG VIAL IM PRN (13:44)
[2017-04-22 14:37] LABS: ABG Base Excess -1.6 MMOL/L (-2.5-2.5); ABG HCO3 22.3 MMOL/L (20-26); ABG Oxygen Saturation 96.8 % (95-100); ABG PCO2 34.2 MM HG (35-48); ABG PH 7.432 (7.35-7.45); ABG PO2 94.4 MM HG (80-95); ABG TCO2 23.3 MMOL/L (23-27); Glucose Heart Surgery 142 MG/DL (74-106); Hemoglobin Heart Surgery 8.8 G/DL (14.0-18.0); Potassium Heart/CVR 3.6 MMOL/L (3.5-5.1)
[2017-04-22] MEDS: MAGNESIUM SULF RIDER 2 GM in PREMIX 1 EACH IV PRN ×2 (14:51→17:14)
[2017-04-22] MEDS: INSULIN REGULAR 100 UNIT/ML SUBCUT SCH ×2 (16:04→20:36)
[2017-04-22 17:44] LABS: ABG Base Excess -3.8 MMOL/L (-2.5-2.5); ABG HCO3 21.9 MMOL/L (20-26); ABG Oxygen Saturation 93.9 % (95-100); ABG PCO2 42.3 MM HG (35-48); ABG PH 7.331 (7.35-7.45); ABG PO2 79.2 MM HG (80-95); ABG TCO2 23.1 MMOL/L (23-27); Glucose Heart Surgery 159 MG/DL (74-106); Hemoglobin Heart Surgery 8.1 G/DL (14.0-18.0); Potassium Heart/CVR 4.1 MMOL/L (3.5-5.1)
[2017-04-22] MEDS ORDERED: FUROSEMIDE 40 MG/4 ML VIAL IV ONE (17:48)
[2017-04-22] MEDS: CEFUROXIME INJ 1,500 MG in SODIUM CHLORIDE 0.9% 100 ML IV SCH (18:13)
[2017-04-22 18:41] LABS: ABG Base Excess -4.6 MMOL/L (-2.5-2.5); ABG Oxygen Saturation 92.1 % (95-100); ABG PCO2 40.9 MM HG (35-48); ABG PH 7.328 (7.35-7.45); ABG PO2 69.3 MM HG (80-95); ABG TCO2 22.2 MMOL/L (23-27); Glucose Heart Surgery 163 MG/DL (74-106); Hemoglobin Heart Surgery 9.4 G/DL (14.0-18.0); Potassium Heart/CVR 4.2 MMOL/L (3.5-5.1)
[2017-04-22 20:46] LABS: Lactic Acid 2.3 MMOL/L (0.4-2.0)
[2017-04-22] MEDS ORDERED: CHLORHEXIDINE 0.12% ORAL RINSE 60 ML BOTTLE SWISH/SPIT SCH (21:00)
[2017-04-22 21:03] LABS: Magnesium 2.9 MG/DL (1.8-2.4); Osmolality,Calculated 283.4 MOS/KG (273-304); Potassium 4.2 MMOL/L (3.5-5.1)
[2017-04-22 21:23] LABS: ABG Base Excess -4.3 MMOL/L (-2.5-2.5); ABG HCO3 20.9 MMOL/L (20-26); ABG Oxygen Saturation 93.5 % (95-100); ABG PCO2 38.9 MM HG (35-48); ABG PH 7.348 (7.35-7.45); ABG PO2 72.8 MM HG (80-95); ABG TCO2 22.1 MMOL/L (23-27); Glucose Heart Surgery 136 MG/DL (74-106); Hemoglobin Heart Surgery 9.1 G/DL (14.0-18.0); Potassium Heart/CVR 4.1 MMOL/L (3.5-5.1)
[2017-04-22 21:26] LABS: Basophils % 0.1 % (0.0-0.8); Hemoglobin 8.4 GM/DL (14.0-18.0); Immature Granulocytes % 0.5 %; Immature Granulocytes Absolute 0.07 #; Lymphocytes # 0.4 10*3/uL (1.4-4.0); Mean Corpuscular HGB Conc 33.6 GM/DL (32-36); Mean Corpuscular Hemoglobin 31 PG (27-34); Mean Corpuscular Volume 92.3 FL (87-102); Mean Platelet Volume 10.4 FL (9.6-12.0); Monocytes # 0.6 10*3/uL (0.11-0.8); Monocytes % 4.7 % (1.7-12.7); Neutrophils # 12.1 10*3/uL (1.4-7.4); Neutrophils % 91.7 % (38.7-73.9); Platelet Count 116 T/CUMM (130-400); Red Blood Count 2.71 MC/CUMM (3.8-5.5); Red Cell Distribution Width 14.5 % (9.3-17.3); White Blood Count 13.2 T/CUMM (4-12)
[2017-04-22 22:32] LABS: Band Neutrophils 4 % (0-10); Lymphocytes 7 % (20-55); Platelet Estimate Normal; Segmented Neutrophils 86 % (50-85); Total Cells Counted 100
[2017-04-23] MEDS: INSULIN REGULAR 100 UNIT/ML SUBCUT SCH ×6 (00:10→21:25)
[2017-04-23] MEDS: SODIUM CHLORIDE 0.45% 1,000 ML IV SCH ×2 (01:26→07:59)
[2017-04-23 03:52] LABS: Hematocrit 25.9 VOL% (42.0-52.0); Hemoglobin 8.9 GM/DL (14.0-18.0); Immature Granulocytes % 0.4 %; Immature Granulocytes Absolute 0.06 #; Lymphocytes # 0.6 10*3/uL (1.4-4.0); Lymphocytes % 4.1 % (21.2-54.2); Mean Corpuscular HGB Conc 34.4 GM/DL (32-36); Mean Corpuscular Hemoglobin 31 PG (27-34); Mean Corpuscular Volume 90.9 FL (87-102); Mean Platelet Volume 10.5 FL (9.6-12.0); Monocytes # 0.9 10*3/uL (0.11-0.8); Monocytes % 6.4 % (1.7-12.7); Neutrophils # 12.7 10*3/uL (1.4-7.4); Neutrophils % 89.1 % (38.7-73.9); Platelet Count 126 T/CUMM (130-400); Red Blood Count 2.85 MC/CUMM (3.8-5.5); Red Cell Distribution Width 14.7 % (9.3-17.3); White Blood Count 14.3 T/CUMM (4-12)
[2017-04-23 04:16] LABS: Calcium 7.2 MG/DL (8.5-10.1); Magnesium 2.4 MG/DL (1.8-2.4); Osmolality,Calculated 278.7 MOS/KG (273-304); Potassium 4.3 MMOL/L (3.5-5.1)
[2017-04-23 04:17] LABS: Band Neutrophils 1 % (0-10); Lymphocytes 9 % (20-55); Platelet Estimate Adequate; Segmented Neutrophils 88 % (50-85); Total Cells Counted 100
--- NOTE | 2017-04-23 06:24 | XRay Report ---
XR chest 1V portable Indication: Clinical concern for pneumothorax. Comparison: Chest x-ray 04/22/2017. Technique: Portable AP chest was performed. Findings: Multiple tubes and medical support devices appear stable. Haziness noted in the lung bases has increased on the left suggesting worsening atelectatic change. Upper lungs remain clear. No pneumothorax is present. Overall appearance of the chest is stable. Impression: 1. Stable appearance of chest with exception of minimal worsening of atelectatic change within the left lung base. Right lung base haziness suggesting minimal pleural fluid and/or atelectasis. 04/23/2017 6:20 AM PROCEDURE INTERPRETED AT [facility] DEPARTMENT OF RADIOLOGY Final Report Signed by: Dr. Osman Acevedo
[2017-04-23] MEDS: CEFUROXIME INJ 1,500 MG in SODIUM CHLORIDE 0.9% 100 ML IV SCH ×2 (06:41→18:23)
--- NOTE | 2017-04-23 07:26 | Cardiology Progress Note ---
Assessment and Plan - Time spent with patient Time spent with patient: Greater than 30 minutes (Exam chart review documentation) (1) Non-STEMI (non-ST elevated myocardial infarction) Status: Chronic Current Visit: Yes (2) Coronary artery disease Status: Chronic Current Visit: Yes Qualifiers: Coronary Disease-Associated Artery/Lesion type: [place] artery [place] vs. transplanted heart: [place] heart Associated angina: with unspecified angina Qualified Code(s): I25.119 - Atherosclerotic heart disease of [place] coronary artery with unspecified angina pectoris (3) Hypertension Status: Chronic Current Visit: Yes Qualifiers: Hypertension type: essential hypertension Qualified Code(s): I10 - Essential (primary) hypertension (4) Hyperlipidemia Status: Chronic Current Visit: Yes Qualifiers: Hyperlipidemia type: mixed hyperlipidemia Qualified Code(s): E78.2 - Mixed hyperlipidemia (5) Renal insufficiency Status: Chronic Current Visit: Yes (6) History of stroke Status: Chronic Current Visit: Yes Cardiology - PN: Subj Interval history: Mr. Bermudez is postop day 1 status post 3 vessel coronary artery bypass grafting received a FINNEY to the LAD saphenous vein graft to the right main coronary artery saphenous vein graft to obtuse marginal. He is doing quite well on his chest tubes remain. He has a prominent rub his blood pressures a little elevated we anticipate that he will be out of bed soon and transferred to the floor today. I told him extensively about incentive spirometer. Exam (Progress Note) - Constitutional Vitals: Period Temp Pulse Resp BP Sys/Wang Pulse Ox Last 24 Hr 96.9 F-99.3 F 60-80 10-23 97-166/43-65 91-100 General appearance: normal weight - Head Head exam: Present: normal inspection - Eye Eye exam: Present: EOMI Pupils: Present: DEREK - Respiratory Respiratory exam: Present: clear to auscultation bilaterally (Gave a fairly good effort I do not hear rales) - Cardiovascular Cardiovascular exam: Present: regular rate and rhythm, rubs - GI/Abdominal GI/Abdominal exam: Present: normal bowel sounds - Extremities Exam Extremities exam: Present: other (Typical postoperative slight oozing) - Back Exam Back exam: Present: normal inspection - Neurological Exam Neurological exam: Present: alert, oriented X3 - Psychiatric Psychiatric exam: Present: normal affect, normal mood - Skin Skin exam: Present: normal color, warm, dry Result/EKG - Labs CBC & BMP: 04/23/17 03:38 04/23/17 03:38 Labs: Laboratory Results - last 24 hr 04/21/17 04/22/17 04/22/17 03:27 07:08 07:28 WBC RBC Hgb Hct MCV MCH MCHC RDW Plt Count 84 L D MPV Neut % (Auto) Lymph % (Auto) [place] % (Auto) Eos % (Auto) Baso % (Auto) Neut # (Auto) Lymph # (Auto) [place] # (Auto) Eos # (Auto) Baso # (Auto) Total Counted Immature Gran % Nucleated RBC % Immature Gran # Segmented Neutrophils Band Neutrophils Lymphocytes Monocytes Nucleated RBCs # Platelet Estimate Pappenheimer Bodies INR PT Patient/Control Mix Circ Anticoag PTT Patient Temperature ABG pH ABG pH at Pt Temp ABG pCO2 ABG pCO2 at Pt Temp ABG pO2 ABG pO2 at Pt Temp ABG HCO3 ABG Total CO2 ABG O2 Saturation ABG Base Excess ABG Sodium VBG pH VBG pCO2 VBG pO2 VBG HCO3 VBG Total CO2 VBG O2 Saturation VBG Base Excess Hemoglobin Hematocrit Potassium Glucose Ionized Calcium FiO2 Sodium Chloride Carbon Dioxide Anion Gap BUN Creatinine GFR Calculation BUN/Creatinine Ratio Calculated Osmolality Lactic Acid Calcium Venous Ioniz Calcium Magnesium Urine Color Yellow Urine Appearance Clear Urine pH 6.0 Ur Specific [place] 1.012 Urine Protein Negative Urine Glucose (UA) Negative Urine Ketones Negative Urine Blood Large Urine Nitrate Negative Urine Bilirubin Negative Urine Urobilinogen < 2.0 H Urine Leukocytes Negative Urine RBC 63 Urine WBC 2 Ur Squamous Epith Cells Occasional Ur Culture Indicated? Not indicated Blood Type A POSITIVE Antibody Screen Negative Crossmatch See Detail 04/22/17 04/22/17 04/22/17 07:28 08:50 09:32 WBC RBC Hgb Hct MCV MCH MCHC RDW Plt Count MPV Neut % (Auto) Lymph % (Auto) [place] % (Auto) Eos % (Auto) Baso % (Auto) Neut # (Auto) Lymph # (Auto) [place] # (Auto) Eos # (Auto) Baso # (Auto) Total Counted Immature Gran % Nucleated RBC % Immature Gran # Segmented Neutrophils Band Neutrophils Lymphocytes Monocytes Nucleated RBCs # Platelet Estimate Pappenheimer Bodies INR PT Patient/Control Mix Circ Anticoag PTT Patient Temperature 37 34 35 ABG pH 7.492 H ABG pH at Pt Temp 7.492 7.494 7.500 ABG pCO2 29.6 L ABG pCO2 at Pt Temp 29.6 28.6 27.5 ABG pO2 484.9 H ABG pO2 at Pt Temp 484.9 35.0 40.3 ABG HCO3 22.2 ABG Total CO2 23.1 ABG O2 Saturation 99.3 ABG Base Excess -0.4 ABG Sodium 135 127 L 124 L VBG pH 7.449 7.470 VBG pCO2 32.6 L 30.0 L VBG pO2 43.2 H 46.4 H VBG HCO3 22.1 L 21.3 L VBG Total CO2 23.1 22.3 VBG O2 Saturation 78.6 83.8 VBG Base Excess -1.7 L -1.9 L Hemoglobin 11.4 L 6.6 L D 7.7 L Hematocrit 34.0 L 19.0 L 23.0 L Potassium 3.6 3.7 4.7 Glucose 105 295 H 299 H Ionized Calcium 1.11 L FiO2 80.00 80.00 Sodium Chloride Carbon Dioxide Anion Gap BUN Creatinine GFR Calculation BUN/Creatinine Ratio Calculated Osmolality Lactic Acid Calcium Venous Ioniz Calcium 0.83 1.10 Magnesium Urine Color Urine Appearance Urine pH Ur Specific [place] Urine Protein Urine Glucose (UA) Urine Ketones Urine Blood Urine Nitrate Urine Bilirubin Urine Urobilinogen Urine Leukocytes Urine RBC Urine WBC Ur Squamous Epith Cells Ur Culture Indicated? Blood Type Antibody Screen Crossmatch 04/22/17 04/22/17 04/22/17 10:13 10:13 11:25 WBC 12.0 D RBC 3.24 L Hgb 10.0 L Hct 29.7 L MCV 91.7 MCH 31 MCHC 33.7 RDW 14.1 Plt Count 74 L 128 L D MPV 10.4 Neut % (Auto) 83.5 H Lymph % (Auto) 8.8 L [place] % (Auto) 6.3 Eos % (Auto) 0.5 Baso % (Auto) 0.3 Neut # (Auto) 10.0 H Lymph # (Auto) 1.1 L [place] # (Auto) 0.8 Eos # (Auto) 0.1 Baso # (Auto) 0.0 Total Counted Immature Gran % 0.6 Nucleated RBC % 0.0 Immature Gran # 0.07 Segmented Neutrophils Band Neutrophils Lymphocytes Monocytes Nucleated RBCs # 0.00 Platelet Estimate Pappenheimer Bodies INR PT Patient/Control Mix Circ Anticoag PTT Patient Temperature 37 ABG pH 7.409 ABG pH at Pt Temp 7.409 ABG pCO2 32.9 L ABG pCO2 at Pt Temp 32.9 ABG pO2 349.7 H ABG pO2 at Pt Temp 349.7 ABG HCO3 20.3 ABG Total CO2 21.3 L ABG O2 Saturation 98.8 ABG Base Excess -3.8 L ABG Sodium 128 L VBG pH VBG pCO2 VBG pO2 VBG HCO3 VBG Total CO2 VBG O2 Saturation VBG Base Excess Hemoglobin 8.8 L Hematocrit 26.0 L Potassium 3.7 Glucose 229 H Ionized Calcium 1.18 L FiO2 Sodium Chloride Carbon Dioxide Anion Gap BUN Creatinine GFR Calculation BUN/Creatinine Ratio Calculated Osmolality Lactic Acid Calcium Venous Ioniz Calcium Magnesium Urine Color Urine Appearance Urine pH Ur Specific [place] Urine Protein Urine Glucose (UA) Urine Ketones Urine Blood Urine Nitrate Urine Bilirubin Urine Urobilinogen Urine Leukocytes Urine RBC Urine WBC Ur Squamous Epith Cells Ur Culture Indicated? Blood Type Antibody Screen Crossmatch 04/22/17 04/22/17 04/22/17 11:25 11:25 11:25 WBC RBC Hgb Hct MCV MCH MCHC RDW Plt Count MPV Neut % (Auto) Lymph % (Auto) [place] % (Auto) Eos % (Auto) Baso % (Auto) Neut # (Auto) Lymph # (Auto) [place] # (Auto) Eos # (Auto) Baso # (Auto) Total Counted Immature Gran % Nucleated RBC % Immature Gran # Segmented Neutrophils Band Neutrophils Lymphocytes Monocytes Nucleated RBCs # Platelet Estimate Pappenheimer Bodies INR 1.2 PT Patient/Control Mix 12.4 Circ Anticoag PTT 30.2 Patient Temperature ABG pH 7.368 ABG pH at Pt Temp ABG pCO2 40.5 ABG pCO2 at Pt Temp ABG pO2 104.0 H ABG pO2 at Pt Temp ABG HCO3 22.8 ABG Total CO2 24.0 ABG O2 Saturation 97.1 ABG Base Excess -2.3 ABG Sodium VBG pH VBG pCO2 VBG pO2 VBG HCO3 VBG Total CO2 VBG O2 Saturation VBG Base Excess Hemoglobin 10.8 L D Hematocrit 32.0 L Potassium 3.6 3.5 Glucose 141 H 134 H Ionized Calcium FiO2 Sodium 139 Chloride 103 Carbon Dioxide 23 Anion Gap 16.6 H BUN 20 H Creatinine 1.60 H GFR Calculation 51 BUN/Creatinine Ratio 12.00 Calculated Osmolality 281.5 Lactic Acid 4.4 H Calcium 8.0 L Venous Ioniz Calcium Magnesium 1.8 Urine Color Urine Appearance Urine pH Ur Specific [place] Urine Protein Urine Glucose (UA) Urine Ketones Urine Blood Urine Nitrate Urine Bilirubin Urine Urobilinogen Urine Leukocytes Urine RBC Urine WBC Ur Squamous Epith Cells Ur Culture Indicated? Blood Type Antibody Screen Crossmatch 04/22/17 04/22/17 04/22/17 14:30 14:30 17:34 WBC RBC Hgb Hct MCV MCH MCHC RDW Plt Count MPV Neut % (Auto) Lymph % (Auto) [place] % (Auto) Eos % (Auto) Baso % (Auto) Neut # (Auto) Lymph # (Auto) [place] # (Auto) Eos # (Auto) Baso # (Auto) Total Counted Immature Gran % Nucleated RBC % Immature Gran # Segmented Neutrophils Band Neutrophils Lymphocytes Monocytes Nucleated RBCs # Platelet Estimate Pappenheimer Bodies INR PT Patient/Control Mix Circ Anticoag PTT Patient Temperature ABG pH 7.432 7.331 L ABG pH at Pt Temp ABG pCO2 34.2 L 42.3 ABG pCO2 at Pt Temp ABG pO2 94.4 79.2 L ABG pO2 at Pt Temp ABG HCO3 22.3 21.9 ABG Total CO2 23.3 23.1 ABG O2 Saturation 96.8 93.9 L ABG Base Excess -1.6 -3.8 L ABG Sodium VBG pH VBG pCO2 VBG pO2 VBG HCO3 VBG Total CO2 VBG O2 Saturation VBG Base Excess Hemoglobin 8.8 L D 8.1 L Hematocrit 26.0 L 24.0 L Potassium 3.6 4.1 Glucose 142 H 159 H Ionized Calcium FiO2 Sodium Chloride Carbon Dioxide Anion Gap BUN Creatinine GFR Calculation BUN/Creatinine Ratio Calculated Osmolality Lactic Acid Calcium Venous Ioniz Calcium Magnesium 1.6 L Urine Color Urine Appearance Urine pH Ur Specific [place] Urine Protein Urine Glucose (UA) Urine Ketones Urine Blood Urine Nitrate Urine Bilirubin Urine Urobilinogen Urine Leukocytes Urine RBC Urine WBC Ur Squamous Epith Cells Ur Culture Indicated? Blood Type Antibody Screen Crossmatch 04/22/17 04/22/17 04/22/17 18:32 20:25 21:16 WBC 13.2 H RBC 2.71 L Hgb 8.4 L Hct 25.0 L MCV 92.3 MCH 31 MCHC 33.6 RDW 14.5 Plt Count 116 L MPV 10.4 Neut % (Auto) 91.7 H Lymph % (Auto) 3.0 L [place] % (Auto) 4.7 Eos % (Auto) 0.0 Baso % (Auto) 0.1 Neut # (Auto) 12.1 H Lymph # (Auto) 0.4 L [place] # (Auto) 0.6 Eos # (Auto) 0.0 Baso # (Auto) 0.0 Total Counted 100 Immature Gran % 0.5 Nucleated RBC % 0.0 Immature Gran # 0.07 Segmented Neutrophils 86 H Band Neutrophils 4 Lymphocytes 7 L Monocytes 3 Nucleated RBCs # 0.00 Platelet Estimate Normal Pappenheimer Bodies Overnight Caregiver INR PT Patient/Control Mix Circ Anticoag PTT Patient Temperature ABG pH 7.328 L ABG pH at Pt Temp ABG pCO2 40.9 ABG pCO2 at Pt Temp ABG pO2 69.3 L ABG pO2 at Pt Temp ABG HCO3 21.0 ABG Total CO2 22.2 L ABG O2 Saturation 92.1 L ABG Base Excess -4.6 L ABG Sodium VBG pH VBG pCO2 VBG pO2 VBG HCO3 VBG Total CO2 VBG O2 Saturation VBG Base Excess Hemoglobin 9.4 L Hematocrit 28.0 L Potassium 4.2 4.2 Glucose 163 H 144 H Ionized Calcium FiO2 Sodium 140 Chloride 108 H Carbon Dioxide 22 Anion Gap 14.2 BUN 19 H Creatinine 1.50 H GFR Calculation 55 BUN/Creatinine Ratio 12.00 Calculated Osmolality 283.4 Lactic Acid 2.3 H Calcium 7.0 L Venous Ioniz Calcium Magnesium 2.9 H Urine Color Urine Appearance Urine pH Ur Specific [place] Urine Protein Urine Glucose (UA) Urine Ketones Urine Blood Urine Nitrate Urine Bilirubin Urine Urobilinogen Urine Leukocytes Urine RBC Urine WBC Ur Squamous Epith Cells Ur Culture Indicated? Blood Type Antibody Screen Crossmatch 04/22/17 04/23/17 04/23/17 21:20 03:38 03:38 WBC 14.3 H RBC 2.85 L Hgb 8.9 L Hct 25.9 L MCV 90.9 MCH 31 MCHC 34.4 RDW 14.7 Plt Count 126 L MPV 10.5 Neut % (Auto) 89.1 H Lymph % (Auto) 4.1 L [place] % (Auto) 6.4 Eos % (Auto) 0.0 Baso % (Auto) 0.0 Neut # (Auto) 12.7 H Lymph # (Auto) 0.6 L [place] # (Auto) 0.9 H Eos # (Auto) 0.0 Baso # (Auto) 0.0 Total Counted 100 Immature Gran % 0.4 Nucleated RBC % 0.0 Immature Gran # 0.06 Segmented Neutrophils 88 H Band Neutrophils 1 Lymphocytes 9 L Monocytes 2 Nucleated RBCs # 0.00 Platelet Estimate Adequate Pappenheimer Bodies Overnight Caregiver INR PT Patient/Control Mix Circ Anticoag PTT Patient Temperature ABG pH 7.348 L ABG pH at Pt Temp ABG pCO2 38.9 ABG pCO2 at Pt Temp ABG pO2 72.8 L ABG pO2 at Pt Temp ABG HCO3 20.9 ABG Total CO2 22.1 L ABG O2 Saturation 93.5 L ABG Base Excess -4.3 L ABG Sodium VBG pH VBG pCO2 VBG pO2 VBG HCO3 VBG Total CO2 VBG O2 Saturation VBG Base Excess Hemoglobin 9.1 L Hematocrit 27.0 L Potassium 4.1 4.3 Glucose 136 H 123 H Ionized Calcium FiO2 Sodium 138 Chloride 105 Carbon Dioxide 24 Anion Gap 13.3 BUN 20 H Creatinine 1.50 H GFR Calculation 55 BUN/Creatinine Ratio 13.00 Calculated Osmolality 278.7 Lactic Acid Calcium 7.2 L Venous Ioniz Calcium Magnesium 2.4 Urine Color Urine Appearance Urine pH Ur Specific [place] Urine Protein Urine Glucose (UA) Urine Ketones Urine Blood Urine Nitrate Urine Bilirubin Urine Urobilinogen Urine Leukocytes Urine RBC Urine WBC Ur Squamous Epith Cells Ur Culture Indicated? Blood Type Antibody Screen Crossmatch Quality Measures - VTE Contraindication to Pharmacological VTE Prophylaxis: Active Bleeding Specialty Discharge - Follow Up or Referrals
[2017-04-23] MEDS: MORPHINE 2 MG/1 ML SYRINGE IV PRN ×3 (09:01→19:29)
[2017-04-23] MEDS: ATORVASTATIN 40 MG TABLET PO SCH ×2 (11:48→21:14)
[2017-04-23] MEDS: FUROSEMIDE 40 MG TABLET PO SCH (12:07)
[2017-04-23] MEDS: ASPIRIN EC 325 MG TABLET PO SCH (12:07)
[2017-04-23] MEDS ORDERED: FUROSEMIDE 40 MG/4 ML VIAL IV ONE (15:09)
--- NOTE | 2017-04-23 15:22 | Anesthesia Post-Op ---
Anesthesia Post OP - Post Ansesthetic Evaluation Patient seen in post op: Yes Resp: within normal limits CV: within normal limits Mental: within normal limits Temp: within normal limits [id number]: within normal limits Nausea and Vomiting: within normal limits Pain: within normal limits
--- NOTE | 2017-04-23 15:32 | Cardiothoracic Progress Note ---
Assessment and Plan (1) Myocardial infarction Status: Acute Assessment and plan: Postoperative day 1 status post CABG 3. The patient has been doing very well. He was extubated yesterday and he has been oxygenating well since. He got out of bed. Minimal chest tube output. We will transfer to telemetry and start aspirin statin and Lasix. Will work with physical therapy and Occupational Therapy. Current Visit: Yes Exam (Progress Note) - Constitutional Vitals: Period Temp Pulse Resp BP Sys/Wang Pulse Ox Last 24 Hr 96.1 F-99.3 F 62-80 10-20 97-160/43-87 90-100 Result/EKG - Labs CBC & BMP: 04/23/17 03:38 04/23/17 03:38 Labs: Laboratory Results - last 24 hr 04/21/17 04/22/17 04/22/17 03:27 15:59 17:34 WBC RBC Hgb Hct MCV MCH MCHC RDW Plt Count MPV Neut % (Auto) Lymph % (Auto) [place] % (Auto) Eos % (Auto) Baso % (Auto) Neut # (Auto) Lymph # (Auto) [place] # (Auto) Eos # (Auto) Baso # (Auto) Total Counted Immature Gran % Nucleated RBC % Immature Gran # Segmented Neutrophils Band Neutrophils Lymphocytes Monocytes Nucleated RBCs # Platelet Estimate Pappenheimer Bodies ABG pH 7.331 L ABG pCO2 42.3 ABG pO2 79.2 L ABG HCO3 21.9 ABG Total CO2 23.1 ABG O2 Saturation 93.9 L ABG Base Excess -3.8 L Hemoglobin 8.1 L Hematocrit 24.0 L Potassium 4.1 Glucose 159 H Sodium Chloride Carbon Dioxide Anion Gap BUN Creatinine GFR Calculation BUN/Creatinine Ratio POC Glucose 165 H Calculated Osmolality Lactic Acid Calcium Magnesium Blood Type A POSITIVE Antibody Screen Negative Crossmatch See Detail 04/22/17 04/22/17 04/22/17 18:32 20:20 20:25 WBC RBC Hgb Hct MCV MCH MCHC RDW Plt Count MPV Neut % (Auto) Lymph % (Auto) [place] % (Auto) Eos % (Auto) Baso % (Auto) Neut # (Auto) Lymph # (Auto) [place] # (Auto) Eos # (Auto) Baso # (Auto) Total Counted Immature Gran % Nucleated RBC % Immature Gran # Segmented Neutrophils Band Neutrophils Lymphocytes Monocytes Nucleated RBCs # Platelet Estimate Pappenheimer Bodies ABG pH 7.328 L ABG pCO2 40.9 ABG pO2 69.3 L ABG HCO3 21.0 ABG Total CO2 22.2 L ABG O2 Saturation 92.1 L ABG Base Excess -4.6 L Hemoglobin 9.4 L Hematocrit 28.0 L Potassium 4.2 4.2 Glucose 163 H 144 H Sodium 140 Chloride 108 H Carbon Dioxide 22 Anion Gap 14.2 BUN 19 H Creatinine 1.50 H GFR Calculation 55 BUN/Creatinine Ratio 12.00 POC Glucose 154 H Calculated Osmolality 283.4 Lactic Acid 2.3 H Calcium 7.0 L Magnesium 2.9 H Blood Type Antibody Screen Crossmatch 04/22/17 04/22/17 04/23/17 21:16 21:20 00:07 WBC 13.2 H RBC 2.71 L Hgb 8.4 L Hct 25.0 L MCV 92.3 MCH 31 MCHC 33.6 RDW 14.5 Plt Count 116 L MPV 10.4 Neut % (Auto) 91.7 H Lymph % (Auto) 3.0 L [place] % (Auto) 4.7 Eos % (Auto) 0.0 Baso % (Auto) 0.1 Neut # (Auto) 12.1 H Lymph # (Auto) 0.4 L [place] # (Auto) 0.6 Eos # (Auto) 0.0 Baso # (Auto) 0.0 Total Counted 100 Immature Gran % 0.5 Nucleated RBC % 0.0 Immature Gran # 0.07 Segmented Neutrophils 86 H Band Neutrophils 4 Lymphocytes 7 L Monocytes 3 Nucleated RBCs # 0.00 Platelet Estimate Normal Pappenheimer Bodies Senior Accounting Specialist ABG pH 7.348 L ABG pCO2 38.9 ABG pO2 72.8 L ABG HCO3 20.9 ABG Total CO2 22.1 L ABG O2 Saturation 93.5 L ABG Base Excess -4.3 L Hemoglobin 9.1 L Hematocrit 27.0 L Potassium 4.1 Glucose 136 H Sodium Chloride Carbon Dioxide Anion Gap BUN Creatinine GFR Calculation BUN/Creatinine Ratio POC Glucose 127 H Calculated Osmolality Lactic Acid Calcium Magnesium Blood Type Antibody Screen Crossmatch 04/23/17 04/23/17 04/23/17 03:38 03:38 03:46 WBC 14.3 H RBC 2.85 L Hgb 8.9 L Hct 25.9 L MCV 90.9 MCH 31 MCHC 34.4 RDW 14.7 Plt Count 126 L MPV 10.5 Neut % (Auto) 89.1 H Lymph % (Auto) 4.1 L [place] % (Auto) 6.4 Eos % (Auto) 0.0 Baso % (Auto) 0.0 Neut # (Auto) 12.7 H Lymph # (Auto) 0.6 L [place] # (Auto) 0.9 H Eos # (Auto) 0.0 Baso # (Auto) 0.0 Total Counted 100 Immature Gran % 0.4 Nucleated RBC % 0.0 Immature Gran # 0.06 Segmented Neutrophils 88 H Band Neutrophils 1 Lymphocytes 9 L Monocytes 2 Nucleated RBCs # 0.00 Platelet Estimate Adequate Pappenheimer Bodies Senior Accounting Specialist ABG pH ABG pCO2 ABG pO2 ABG HCO3 ABG Total CO2 ABG O2 Saturation ABG Base Excess Hemoglobin Hematocrit Potassium 4.3 Glucose 123 H Sodium 138 Chloride 105 Carbon Dioxide 24 Anion Gap 13.3 BUN 20 H Creatinine 1.50 H GFR Calculation 55 BUN/Creatinine Ratio 13.00 POC Glucose 143 H Calculated Osmolality 278.7 Lactic Acid Calcium 7.2 L Magnesium 2.4 Blood Type Antibody Screen Crossmatch 04/23/17 04/23/17 08:05 11:30 WBC RBC Hgb Hct MCV MCH MCHC RDW Plt Count MPV Neut % (Auto) Lymph % (Auto) [place] % (Auto) Eos % (Auto) Baso % (Auto) Neut # (Auto) Lymph # (Auto) [place] # (Auto) Eos # (Auto) Baso # (Auto) Total Counted Immature Gran % Nucleated RBC % Immature Gran # Segmented Neutrophils Band Neutrophils Lymphocytes Monocytes Nucleated RBCs # Platelet Estimate Pappenheimer Bodies ABG pH ABG pCO2 ABG pO2 ABG HCO3 ABG Total CO2 ABG O2 Saturation ABG Base Excess Hemoglobin Hematocrit Potassium Glucose Sodium Chloride Carbon Dioxide Anion Gap BUN Creatinine GFR Calculation BUN/Creatinine Ratio POC Glucose 134 H 123 H Calculated Osmolality Lactic Acid Calcium Magnesium Blood Type Antibody Screen Crossmatch Quality Measures - VTE Contraindication to Pharmacological VTE Prophylaxis: Active Bleeding Specialty Discharge - Follow Up or Referrals
[2017-04-23] MEDS ORDERED: HALOPERIDOL 5 MG/ML AMP IV ONE (21:29)
[2017-04-24] MEDS: INSULIN REGULAR 100 UNIT/ML SUBCUT SCH ×3 (01:42→14:14)
[2017-04-24 04:38] LABS: Basophils % 0.1 % (0.0-0.8); Eosinophils % 0.1 % (0.00-10.9); Hematocrit 20.3 VOL% (42.0-52.0); Hemoglobin 6.9 GM/DL (14.0-18.0); Immature Granulocytes % 0.7 %; Immature Granulocytes Absolute 0.07 #; Lymphocytes # 0.9 10*3/uL (1.4-4.0); Lymphocytes % 8.8 % (21.2-54.2); Mean Corpuscular Hemoglobin 32 PG (27-34); Mean Corpuscular Volume 92.7 FL (87-102); Mean Platelet Volume 11.1 FL (9.6-12.0); Monocytes # 0.8 10*3/uL (0.11-0.8); Neutrophils # 8.7 10*3/uL (1.4-7.4); Neutrophils % 82.3 % (38.7-73.9); Platelet Count 106 T/CUMM (130-400); Red Blood Count 2.19 MC/CUMM (3.8-5.5); Red Cell Distribution Width 14.6 % (9.3-17.3); White Blood Count 10.6 T/CUMM (4-12)
[2017-04-24 04:58] LABS: Magnesium 1.6 MG/DL (1.8-2.4); Osmolality,Calculated 288.7 MOS/KG (273-304); Potassium 3.1 MMOL/L (3.5-5.1)
[2017-04-24 05:03] LABS: Calcium 5.8 MG/DL (8.5-10.1)
[2017-04-24 05:06] LABS: Lymphocytes 11 % (20-55); Segmented Neutrophils 84 % (50-85); Total Cells Counted 100
[2017-04-24 05:07] LABS: Hypochromasia 1+; Platelet Estimate Adequate
[2017-04-24 05:08] LABS: Microcytosis 1+
--- NOTE | 2017-04-24 06:44 | XRay Report ---
XR chest 1V portable Indication: Evaluate for pneumothorax. Comparison: Chest x-ray 04/23/2017. Technique: Portable AP chest was performed. Findings: Small apical pneumothorax on the left is demonstrated. The superior pleural alignment is displaced approximately 8 mm from the inferior margin of the posterior left first rib. Bibasilar airspace opacities are demonstrated with little suggestive change from comparison study. Haziness in the right lung base additionally is present which may reflect component of dependent pleural fluid. Fluid is present within the minor fissure. Multiple tubes and medical support devices appear stable. Little change in the chest is otherwise suggested. Impression: 1. Bibasilar airspace opacities and additional ventral considerations including edema, atelectasis, and infection. Additional haziness within the right lung base suggestive dependent pleural fluid. Small amount fluid is present within the minor fissure. 2. Tiny left apical pneumothorax is present as detailed. 04/24/2017 6:40 AM PROCEDURE INTERPRETED AT [facility] DEPARTMENT OF RADIOLOGY Final Report Signed by: Dr. Osman Acevedo
[2017-04-24] MEDS ORDERED: CALCIUM GLUCONATE 1,000 MG in SODIUM CHLORIDE 0.9% 100 ML IV ONE (07:00)
[2017-04-24] MEDS: MAGNESIUM SULF RIDER 2 GM in PREMIX 1 EACH IV PRN ×2 (07:21→08:55)
[2017-04-24] MEDS ORDERED: POTASSIUM CHLORIDE RIDER 100 ML IV ONE ×2 (08:46→08:48)
[2017-04-24] MEDS ORDERED: POTASSIUM CHLORIDE RIDER 200 ML IV ONE (08:47)
[2017-04-24] MEDS ORDERED: FUROSEMIDE 40 MG/4 ML VIAL IV ONE (08:53)
[2017-04-24] MEDS: POTASSIUM CHLORIDE RIDER 20 MEQ in PREMIX 1 EACH IV PRN ×4 (09:00→12:20)
[2017-04-24] MEDS: FUROSEMIDE 40 MG TABLET PO SCH (10:08)
[2017-04-24] MEDS: ASPIRIN EC 325 MG TABLET PO SCH (10:08)
--- NOTE | 2017-04-24 10:11 | XRay Report ---
XR chest 1V portable Indication: Status post discontinuation of chest tubes. Comparison: Chest x-ray 04/24/2017. Technique: Portable AP chest was performed. Findings: Comparison the chest has changed little since comparison study status post removal of chest tubes and mediastinal drains. Bibasilar atelectatic changes are suggested. A small amount of dependent pleural fluid is not excluded bilaterally. The appearance of the left lung apex is stable. No significant changes otherwise demonstrated. Impression: 1. No significant change in the chest status post removal of chest tubes and mediastinal drains. 04/24/2017 10:07 AM PROCEDURE INTERPRETED AT [facility] DEPARTMENT OF RADIOLOGY Final Report Signed by: Dr. Osman Acevedo
--- NOTE | 2017-04-24 11:31 | Cardiology Progress Note ---
<Mckayla Cavanaugh - Last Filed: 04/24/17 11:02> Assessment and Plan (1) Status post aorto-coronary artery bypass graft Status: Acute Assessment and plan: See plan of care listed below. Current Visit: Yes (2) Coronary artery disease Status: Chronic Assessment and plan: See plan of care listed below. Current Visit: Yes Qualifiers: Coronary Disease-Associated Artery/Lesion type: [place] artery [place] vs. transplanted heart: [place] heart Associated angina: with unspecified angina Qualified Code(s): I25.119 - Atherosclerotic heart disease of [place] coronary artery with unspecified angina pectoris (3) Hyperlipidemia Status: Chronic Assessment and plan: See plan of care listed below. Current Visit: Yes Qualifiers: Hyperlipidemia type: mixed hyperlipidemia Qualified Code(s): E78.2 - Mixed hyperlipidemia (4) Hypertension Status: Chronic Assessment and plan: See plan of care listed below. Current Visit: Yes Qualifiers: Hypertension type: essential hypertension Qualified Code(s): I10 - Essential (primary) hypertension (5) Non-STEMI (non-ST elevated myocardial infarction) Status: Resolved Current Visit: Yes (6) Hypokalemia Status: Acute Assessment and plan: See plan of care listed below. Current Visit: Yes (7) Hypomagnesemia Status: Acute Assessment and plan: See plan of care listed below. Current Visit: Yes (8) Anemia Status: Acute Assessment and plan: See plan of care listed below. Current Visit: Yes Cardiology - PN: Subj Interval history: Policy Advisor: Dr. Curtis Summary: The patient is a 71-year-old black male who had no known coronary artery disease until recently, when he was admitted to [facility] with chest pain, and diagnosed with a non-ST elevation myocardial infarction. Comorbidities include hypertension, hyperlipidemia, possible dementia. He has a history of stroke or TIA in the remote past without residual neurologic deficit that he can describe. He underwent cardiac catheterization which revealed three-vessel coronary artery disease (proximal LAD 80-90% stenosis, obtuse marginal artery 100% stenosis with left to left collateralization, RCA 90 % stenosis, LV gram EF 55% with inferolateral akinesis or dyskinesis). Echocardiogram revealed normal LV systolic function with ejection fraction 55-60 %. Grade 1 diastolic dysfunction. Mild to moderate concentric left ventricular hypertrophy. Mild mitral and tricuspid regurgitation. The patient was transferred to [facility] in anticipation of Bypass surgery. He underwent CABG April 22, [address] [place] with FINNEY to LAD, saphenous vein graft to RCA and saphenous vein graft to obtuse marginal. April 24, 2017 Update - Patient is resting in bed in no acute distress. Currently receiving blood transfusion as his H&H was 6 and 20 this morning. He is without complaints. He denies chest pain, heaviness and tightness as well as shortness of breath. Midsternal chest incision is healing well without dehiscence or drainage. Bilateral upper extremity incision dressings are dry and intact. Chest tubes were removed this morning. Magnesium and potassium are low today, currently being replaced per protocol. Vital signs are stable. Telemetry has been reviewed, patient has been in normal sinus rhythm without any overt arrhythmias or ectopy. Impression and plan: 1. STATUS POST CABG - He is now postop day #2. Status post FINNEY graft to LAD , SVG to RCA and SVG to obtuse marginal. Patient is doing well postoperatively. Encouraged use of incentive spirometry. 2. CORONARY ARTERY DISEASE - Beta andie was not initiated at admission as he was bradycardic. This is now resolved, heart rate in the upper 80s. At this time, I will add a low-dose beta-andie, will increase as he tolerates. Continue aspirin and lipid lowering agent. 3. HYPERTENSION - Well controlled. Beta andie has been added to his medication regimen as patient has significant coronary artery disease. 4. HYPERLIPIDEMIA - Continue current plan of care with lipid lowering agent. 5. ANEMIA - Patient is currently being transfused with packed red blood cells. No overt bleeding. Will continue to monitor closely with CBC. 6. HYPOMAGNESEMIA - Magnesium replacement protocol ordered. Daily BMP with mag. 7. HYPOKALEMIA - Currently being replaced per IV protocol. Asymptomatic. Daily BMP. Further plan and addendum to follow per Dr. Obrien. Exam (Progress Note) - Constitutional Vitals: Period Temp Pulse Resp BP Sys/Wang Pulse Ox Last 24 Hr 96.1 F-100.6 F 76-88 16-21 109-157/51-72 90-97 General appearance: no acute distress, under weight - Head Head exam: Present: normal inspection, normocephalic, atraumatic - Neck Neck exam: Present: normal inspection - Respiratory Respiratory exam: Present: clear to auscultation bilaterally - Cardiovascular Cardiovascular exam: Present: regular rate and rhythm, rubs - GI/Abdominal GI/Abdominal exam: Present: normal bowel sounds, soft. Absent: firm, guarding, tenderness - Extremities Exam Extremities exam: Present: normal inspection, normal capillary refill. Absent: calf tenderness, edema - Neurological Exam Neurological exam: Present: alert, oriented X3 - Psychiatric Psychiatric exam: Present: normal affect, normal mood - Skin Skin exam: Present: normal color, warm, dry, other (Midsternal chest incision is healing well without dehiscence or drainage.) Result/EKG - Labs CBC & BMP: 04/24/17 03:43 04/24/17 03:43 Lab Results: I have reviewed the past 24 hour labs Labs: Laboratory Results - last 24 hr 04/21/17 04/22/17 04/22/17 03:27 15:59 20:20 WBC RBC Hgb Hct MCV MCH MCHC RDW Plt Count MPV Neut % (Auto) Lymph % (Auto) [place] % (Auto) Eos % (Auto) Baso % (Auto) Neut # (Auto) Lymph # (Auto) [place] # (Auto) Eos # (Auto) Baso # (Auto) Total Counted Immature Gran % Nucleated RBC % Immature Gran # Segmented Neutrophils Lymphocytes Monocytes Nucleated RBCs # Platelet Estimate Hypochromasia Microcytosis Sodium Potassium Chloride Carbon Dioxide Anion Gap BUN Creatinine GFR Calculation BUN/Creatinine Ratio Glucose POC Glucose 165 H 154 H Calculated Osmolality Calcium Magnesium Blood Type Antibody Screen Crossmatch See Detail 04/23/17 04/23/17 04/23/17 00:07 03:46 08:05 WBC RBC Hgb Hct MCV MCH MCHC RDW Plt Count MPV Neut % (Auto) Lymph % (Auto) [place] % (Auto) Eos % (Auto) Baso % (Auto) Neut # (Auto) Lymph # (Auto) [place] # (Auto) Eos # (Auto) Baso # (Auto) Total Counted Immature Gran % Nucleated RBC % Immature Gran # Segmented Neutrophils Lymphocytes Monocytes Nucleated RBCs # Platelet Estimate Hypochromasia Microcytosis Sodium Potassium Chloride Carbon Dioxide Anion Gap BUN Creatinine GFR Calculation BUN/Creatinine Ratio Glucose POC Glucose 127 H 143 H 134 H Calculated Osmolality Calcium Magnesium Blood Type Antibody Screen Crossmatch 04/23/17 04/23/17 04/23/17 11:30 15:57 19:41 WBC RBC Hgb Hct MCV MCH MCHC RDW Plt Count MPV Neut % (Auto) Lymph % (Auto) [place] % (Auto) Eos % (Auto) Baso % (Auto) Neut # (Auto) Lymph # (Auto) [place] # (Auto) Eos # (Auto) Baso # (Auto) Total Counted Immature Gran % Nucleated RBC % Immature Gran # Segmented Neutrophils Lymphocytes Monocytes Nucleated RBCs # Platelet Estimate Hypochromasia Microcytosis Sodium Potassium Chloride Carbon Dioxide Anion Gap BUN Creatinine GFR Calculation BUN/Creatinine Ratio Glucose POC Glucose 123 H 133 H 119 H Calculated Osmolality Calcium Magnesium Blood Type Antibody Screen Crossmatch 04/24/17 04/24/17 04/24/17 01:40 03:43 03:43 WBC 10.6 RBC 2.19 L D Hgb 6.9 L D Hct 20.3 L MCV 92.7 MCH 32 MCHC 34.0 RDW 14.6 Plt Count 106 L MPV 11.1 Neut % (Auto) 82.3 H Lymph % (Auto) 8.8 L [place] % (Auto) 8.0 Eos % (Auto) 0.1 Baso % (Auto) 0.1 Neut # (Auto) 8.7 H Lymph # (Auto) 0.9 L [place] # (Auto) 0.8 Eos # (Auto) 0.0 Baso # (Auto) 0.0 Total Counted 100 Immature Gran % 0.7 Nucleated RBC % 0.0 Immature Gran # 0.07 Segmented Neutrophils 84 Lymphocytes 11 L Monocytes 5 Nucleated RBCs # 0.00 Platelet Estimate Adequate Hypochromasia 1+ Microcytosis 1+ Sodium 145 Potassium 3.1 L Chloride 115 H Carbon Dioxide 21 Anion Gap 12.1 BUN 18 Creatinine 1.00 GFR Calculation 90 BUN/Creatinine Ratio 18.00 Glucose 79 POC Glucose 123 H Calculated Osmolality 288.7 Calcium 5.8 L* Magnesium 1.6 L Blood Type Antibody Screen Crossmatch 04/24/17 04/24/17 04/24/17 03:43 04:56 07:31 WBC RBC Hgb Hct MCV MCH MCHC RDW Plt Count MPV Neut % (Auto) Lymph % (Auto) [place] % (Auto) Eos % (Auto) Baso % (Auto) Neut # (Auto) Lymph # (Auto) [place] # (Auto) Eos # (Auto) Baso # (Auto) Total Counted Immature Gran % Nucleated RBC % Immature Gran # Segmented Neutrophils Lymphocytes Monocytes Nucleated RBCs # Platelet Estimate Hypochromasia Microcytosis Sodium Potassium Chloride Carbon Dioxide Anion Gap BUN Creatinine GFR Calculation BUN/Creatinine Ratio Glucose POC Glucose 118 H 117 H Calculated Osmolality Calcium Magnesium Blood Type A POSITIVE Antibody Screen Negative Crossmatch See Detail Quality Measures - VTE Contraindication to Pharmacological VTE Prophylaxis: Active Bleeding Specialty Discharge - Follow Up or Referrals <Devi Obrien - Last Filed: 04/24/17 15:26> Assessment and Plan (1) Non-STEMI (non-ST elevated myocardial infarction) Status: Resolved Current Visit: Yes (2) Coronary artery disease Status: Chronic Current Visit: Yes Qualifiers: Coronary Disease-Associated Artery/Lesion type: [place] artery [place] vs. transplanted heart: [place] heart Associated angina: with unspecified angina Qualified Code(s): I25.119 - Atherosclerotic heart disease of [place] coronary artery with unspecified angina pectoris (3) Hypertension Status: Chronic Current Visit: Yes Qualifiers: Hypertension type: essential hypertension Qualified Code(s): I10 - Essential (primary) hypertension (4) Hyperlipidemia Status: Chronic Current Visit: Yes Qualifiers: Hyperlipidemia type: mixed hyperlipidemia Qualified Code(s): E78.2 - Mixed hyperlipidemia (5) Renal insufficiency Status: Chronic Current Visit: Yes (6) History of stroke Status: Chronic Current Visit: Yes Cardiology - PN: Subj Interval history: Mr. Bermudez looks pretty good today. He is not using his incentive spirometer. I went over that again with him today. He is postop day 2 status post FINNEY to the LAD and saphenous vein graft to the RCA and obtuse marginal. I have encouraged him to use his in his incentive spirometer and get his large volumes as he can on inspiration. He seems to understand but he gives less than ideal inspiratory effort. Exam (Progress Note) - Constitutional Vitals: Period Temp Pulse Resp BP Sys/Wang Pulse Ox Last 24 Hr 96.6 F-100.8 F 70-88 16-21 109-157/51-72 91-97 General appearance: no acute distress, under weight - Neck Neck exam: Present: normal inspection - Respiratory Respiratory exam: Present: clear to auscultation bilaterally (Suboptimal effort) - Cardiovascular Cardiovascular exam: Present: regular rate and rhythm, rubs - GI/Abdominal GI/Abdominal exam: Present: normal bowel sounds, soft - Extremities Exam Extremities exam: Present: normal inspection, other ([place] site is dressed clean and dry) - Neurological Exam Neurological exam: Present: alert, oriented X3 - Psychiatric Psychiatric exam: Present: normal affect, normal mood - Skin Skin exam: Present: normal color, warm, dry Result/EKG - Labs CBC & BMP: 04/24/17 14:40 04/24/17 03:43 Labs: Laboratory Results - last 24 hr 04/21/17 04/23/17 04/23/17 03:27 15:57 19:41 WBC RBC Hgb Hct MCV MCH MCHC RDW Plt Count MPV Neut % (Auto) Lymph % (Auto) [place] % (Auto) Eos % (Auto) Baso % (Auto) Neut # (Auto) Lymph # (Auto) [place] # (Auto) Eos # (Auto) Baso # (Auto) Total Counted Immature Gran % Nucleated RBC % Immature Gran # Segmented Neutrophils Lymphocytes Monocytes Nucleated RBCs # Platelet Estimate Hypochromasia Microcytosis Sodium Potassium Chloride Carbon Dioxide Anion Gap BUN Creatinine GFR Calculation BUN/Creatinine Ratio Glucose POC Glucose 133 H 119 H Calculated Osmolality Calcium Magnesium Blood Type Antibody Screen Crossmatch See Detail 04/24/17 04/24/17 04/24/17 01:40 03:43 03:43 WBC 10.6 RBC 2.19 L D Hgb 6.9 L D Hct 20.3 L MCV 92.7 MCH 32 MCHC 34.0 RDW 14.6 Plt Count 106 L MPV 11.1 Neut % (Auto) 82.3 H Lymph % (Auto) 8.8 L [place] % (Auto) 8.0 Eos % (Auto) 0.1 Baso % (Auto) 0.1 Neut # (Auto) 8.7 H Lymph # (Auto) 0.9 L [place] # (Auto) 0.8 Eos # (Auto) 0.0 Baso # (Auto) 0.0 Total Counted 100 Immature Gran % 0.7 Nucleated RBC % 0.0 Immature Gran # 0.07 Segmented Neutrophils 84 Lymphocytes 11 L Monocytes 5 Nucleated RBCs # 0.00 Platelet Estimate Adequate Hypochromasia 1+ Microcytosis 1+ Sodium 145 Potassium 3.1 L Chloride 115 H Carbon Dioxide 21 Anion Gap 12.1 BUN 18 Creatinine 1.00 GFR Calculation 90 BUN/Creatinine Ratio 18.00 Glucose 79 POC Glucose 123 H Calculated Osmolality 288.7 Calcium 5.8 L* Magnesium 1.6 L Blood Type Antibody Screen Crossmatch 04/24/17 04/24/17 04/24/17 03:43 04:56 07:31 WBC RBC Hgb Hct MCV MCH MCHC RDW Plt Count MPV Neut % (Auto) Lymph % (Auto) [place] % (Auto) Eos % (Auto) Baso % (Auto) Neut # (Auto) Lymph # (Auto) [place] # (Auto) Eos # (Auto) Baso # (Auto) Total Counted Immature Gran % Nucleated RBC % Immature Gran # Segmented Neutrophils Lymphocytes Monocytes Nucleated RBCs # Platelet Estimate Hypochromasia Microcytosis Sodium Potassium Chloride Carbon Dioxide Anion Gap BUN Creatinine GFR Calculation BUN/Creatinine Ratio Glucose POC Glucose 118 H 117 H Calculated Osmolality Calcium Magnesium Blood Type A POSITIVE Antibody Screen Negative Crossmatch See Detail 04/24/17 04/24/17 11:31 14:40 WBC 14.1 H D RBC 3.87 D Hgb 11.9 L D Hct 34.4 L MCV 88.9 MCH 31 MCHC 34.6 RDW 15.0 Plt Count 140 D MPV 10.6 Neut % (Auto) 89.0 H Lymph % (Auto) 4.8 L [place] % (Auto) 5.5 Eos % (Auto) 0.0 Baso % (Auto) 0.1 Neut # (Auto) 12.5 H Lymph # (Auto) 0.7 L [place] # (Auto) 0.8 Eos # (Auto) 0.0 Baso # (Auto) 0.0 Total Counted Immature Gran % 0.6 Nucleated RBC % 0.0 Immature Gran # 0.08 Segmented Neutrophils Lymphocytes Monocytes Nucleated RBCs # 0.00 Platelet Estimate Hypochromasia Microcytosis Sodium Potassium Chloride Carbon Dioxide Anion Gap BUN Creatinine GFR Calculation BUN/Creatinine Ratio Glucose POC Glucose 116 H Calculated Osmolality Calcium Magnesium Blood Type Antibody Screen Crossmatch
[2017-04-24] MEDS: ACETAMINOPHEN 325 MG TABLET PO PRN (11:44)
[2017-04-24] MEDS: CARVEDILOL 3.125 MG TABLET PO SCH ×2 (11:45→21:01)
[2017-04-24 14:54] LABS: Basophils % 0.1 % (0.0-0.8); Hematocrit 34.4 VOL% (42.0-52.0); Hemoglobin 11.9 GM/DL (14.0-18.0); Immature Granulocytes % 0.6 %; Immature Granulocytes Absolute 0.08 #; Lymphocytes # 0.7 10*3/uL (1.4-4.0); Lymphocytes % 4.8 % (21.2-54.2); Mean Corpuscular HGB Conc 34.6 GM/DL (32-36); Mean Corpuscular Hemoglobin 31 PG (27-34); Mean Corpuscular Volume 88.9 FL (87-102); Mean Platelet Volume 10.6 FL (9.6-12.0); Monocytes # 0.8 10*3/uL (0.11-0.8); Monocytes % 5.5 % (1.7-12.7); Neutrophils # 12.5 10*3/uL (1.4-7.4); Platelet Count 140 T/CUMM (130-400); Red Blood Count 3.87 MC/CUMM (3.8-5.5); White Blood Count 14.1 T/CUMM (4-12)
[2017-04-24 15:24] LABS: Calcium 8.3 MG/DL (8.5-10.1); Magnesium 3.2 MG/DL (1.8-2.4); Osmolality,Calculated 277.1 MOS/KG (273-304); Potassium 4.9 MMOL/L (3.5-5.1)
--- NOTE | 2017-04-24 16:19 | Cardiothoracic Progress Note ---
Assessment and Plan (1) Myocardial infarction Status: Acute Assessment and plan: Postoperative day 2 status post CABG 3. The patient has been doing very well. His blood work this morning showed H&H of 05/14 however I believe it was erroneous as his hemoglobin/hematocrit jumped up to 11/34 with 1 unit of blood transfusion. The rest of his electrolytes were also unusually low however they were corrected and the following blood work. Otherwise the patient has been doing very well without any problems. He denies any chest pain. He is getting out of bed. He is on minimal oxygen with nasal cannula Current Visit: Yes Exam (Progress Note) - Constitutional Vitals: Period Temp Pulse Resp BP Sys/Wang Pulse Ox Last 24 Hr 96.6 F-100.8 F 63-88 16-21 108-154/51-72 91-97 Result/EKG - Labs CBC & BMP: 04/24/17 14:40 04/24/17 14:40 Labs: Laboratory Results - last 24 hr 04/21/17 04/23/17 04/24/17 03:27 19:41 01:40 WBC RBC Hgb Hct MCV MCH MCHC RDW Plt Count MPV Neut % (Auto) Lymph % (Auto) [place] % (Auto) Eos % (Auto) Baso % (Auto) Neut # (Auto) Lymph # (Auto) [place] # (Auto) Eos # (Auto) Baso # (Auto) Total Counted Immature Gran % Nucleated RBC % Immature Gran # Segmented Neutrophils Lymphocytes Monocytes Nucleated RBCs # Platelet Estimate Hypochromasia Microcytosis Sodium Potassium Chloride Carbon Dioxide Anion Gap BUN Creatinine GFR Calculation BUN/Creatinine Ratio Glucose POC Glucose 119 H 123 H Calculated Osmolality Calcium Magnesium Blood Type Antibody Screen Crossmatch See Detail 04/24/17 04/24/17 04/24/17 03:43 03:43 03:43 WBC 10.6 RBC 2.19 L D Hgb 6.9 L D Hct 20.3 L MCV 92.7 MCH 32 MCHC 34.0 RDW 14.6 Plt Count 106 L MPV 11.1 Neut % (Auto) 82.3 H Lymph % (Auto) 8.8 L [place] % (Auto) 8.0 Eos % (Auto) 0.1 Baso % (Auto) 0.1 Neut # (Auto) 8.7 H Lymph # (Auto) 0.9 L [place] # (Auto) 0.8 Eos # (Auto) 0.0 Baso # (Auto) 0.0 Total Counted 100 Immature Gran % 0.7 Nucleated RBC % 0.0 Immature Gran # 0.07 Segmented Neutrophils 84 Lymphocytes 11 L Monocytes 5 Nucleated RBCs # 0.00 Platelet Estimate Adequate Hypochromasia 1+ Microcytosis 1+ Sodium 145 Potassium 3.1 L Chloride 115 H Carbon Dioxide 21 Anion Gap 12.1 BUN 18 Creatinine 1.00 GFR Calculation 90 BUN/Creatinine Ratio 18.00 Glucose 79 POC Glucose Calculated Osmolality 288.7 Calcium 5.8 L* Magnesium 1.6 L Blood Type A POSITIVE Antibody Screen Negative Crossmatch See Detail 04/24/17 04/24/17 04/24/17 04:56 07:31 11:31 WBC RBC Hgb Hct MCV MCH MCHC RDW Plt Count MPV Neut % (Auto) Lymph % (Auto) [place] % (Auto) Eos % (Auto) Baso % (Auto) Neut # (Auto) Lymph # (Auto) [place] # (Auto) Eos # (Auto) Baso # (Auto) Total Counted Immature Gran % Nucleated RBC % Immature Gran # Segmented Neutrophils Lymphocytes Monocytes Nucleated RBCs # Platelet Estimate Hypochromasia Microcytosis Sodium Potassium Chloride Carbon Dioxide Anion Gap BUN Creatinine GFR Calculation BUN/Creatinine Ratio Glucose POC Glucose 118 H 117 H 116 H Calculated Osmolality Calcium Magnesium Blood Type Antibody Screen Crossmatch 04/24/17 04/24/17 14:40 14:40 WBC 14.1 H D RBC 3.87 D Hgb 11.9 L D Hct 34.4 L MCV 88.9 MCH 31 MCHC 34.6 RDW 15.0 Plt Count 140 D MPV 10.6 Neut % (Auto) 89.0 H Lymph % (Auto) 4.8 L [place] % (Auto) 5.5 Eos % (Auto) 0.0 Baso % (Auto) 0.1 Neut # (Auto) 12.5 H Lymph # (Auto) 0.7 L [place] # (Auto) 0.8 Eos # (Auto) 0.0 Baso # (Auto) 0.0 Total Counted Immature Gran % 0.6 Nucleated RBC % 0.0 Immature Gran # 0.08 Segmented Neutrophils Lymphocytes Monocytes Nucleated RBCs # 0.00 Platelet Estimate Hypochromasia Microcytosis Sodium 135 L Potassium 4.9 Chloride 100 Carbon Dioxide 26 Anion Gap 13.9 BUN 28 H D Creatinine 1.60 H GFR Calculation 51 BUN/Creatinine Ratio 17.00 Glucose 135 H POC Glucose Calculated Osmolality 277.1 Calcium 8.3 L D Magnesium 3.2 H Blood Type Antibody Screen Crossmatch Quality Measures - VTE Contraindication to Pharmacological VTE Prophylaxis: Active Bleeding Specialty Discharge - Follow Up or Referrals
[2017-04-24] MEDS: ATORVASTATIN 40 MG TABLET PO SCH (21:01)
[2017-04-25 04:40] LABS: Basophils % 0.2 % (0.0-0.8); Eosinophils % 0.1 % (0.00-10.9); Hematocrit 33.2 VOL% (42.0-52.0); Hemoglobin 11.4 GM/DL (14.0-18.0); Immature Granulocytes % 0.5 %; Immature Granulocytes Absolute 0.07 #; Lymphocytes # 1.3 10*3/uL (1.4-4.0); Lymphocytes % 9.9 % (21.2-54.2); Mean Corpuscular HGB Conc 34.3 GM/DL (32-36); Mean Corpuscular Hemoglobin 30 PG (27-34); Mean Corpuscular Volume 86.9 FL (87-102); Mean Platelet Volume 10.9 FL (9.6-12.0); Monocytes # 1.1 10*3/uL (0.11-0.8); Monocytes % 8.2 % (1.7-12.7); Neutrophils # 10.4 10*3/uL (1.4-7.4); Neutrophils % 81.1 % (38.7-73.9); Platelet Count 146 T/CUMM (130-400); Red Blood Count 3.82 MC/CUMM (3.8-5.5); Red Cell Distribution Width 14.9 % (9.3-17.3); White Blood Count 12.8 T/CUMM (4-12)
[2017-04-25 05:13] LABS: Calcium 8.4 MG/DL (8.5-10.1); Calcium 8.6 MG/DL (8.5-10.1); Magnesium 2.7 MG/DL (1.8-2.4); Osmolality,Calculated 280.8 MOS/KG (273-304); Potassium 4.5 MMOL/L (3.5-5.1); Potassium 4.6 MMOL/L (3.5-5.1)
--- NOTE | 2017-04-25 06:55 | XRay Report ---
XR chest 1V portable Indication: Evaluation for pneumothorax. Comparison: Chest x-ray 04/24/2017. Technique: Portable AP chest was performed. Findings: Very minimal displacement of superior pleural surface is present measuring 2 to 3 mm. Haziness of the lung bases and incomplete visualization of hemidiaphragms is noted. There does appear to be some improvement in aeration of the right lung base. Upper lungs are clear. Chest is otherwise unchanged. Impression: 1. Tiny left apical pneumothorax is suggested. No right-sided pneumothorax is clearly demonstrated. 2. Haziness in the lung bases has differential considerations including dependent fluid as well as bibasilar atelectasis. I does appear to be some improvement of the right lung base. 04/25/2017 6:51 AM PROCEDURE INTERPRETED AT [facility] DEPARTMENT OF RADIOLOGY Final Report Signed by: Dr. Osman Acevedo
[2017-04-25] MEDS ORDERED: POLYETHYLENE GLYCOL POWDER 17 GM PACK PO PRN (07:17)
--- NOTE | 2017-04-25 09:03 | Cardiology Progress Note ---
<Mckayla Cavanaugh - Last Filed: 04/25/17 08:42> Assessment and Plan (1) Status post aorto-coronary artery bypass graft Status: Acute Assessment and plan: See plan of care listed below. Current Visit: Yes (2) Coronary artery disease Status: Chronic Assessment and plan: See plan of care listed below. Current Visit: Yes Qualifiers: Coronary Disease-Associated Artery/Lesion type: [place] artery [place] vs. transplanted heart: [place] heart Associated angina: with unspecified angina Qualified Code(s): I25.119 - Atherosclerotic heart disease of [place] coronary artery with unspecified angina pectoris (3) Hyperlipidemia Status: Chronic Assessment and plan: See plan of care listed below. Current Visit: Yes Qualifiers: Hyperlipidemia type: mixed hyperlipidemia Qualified Code(s): E78.2 - Mixed hyperlipidemia (4) Hypertension Status: Chronic Assessment and plan: See plan of care listed below. Current Visit: Yes Qualifiers: Hypertension type: essential hypertension Qualified Code(s): I10 - Essential (primary) hypertension (5) Non-STEMI (non-ST elevated myocardial infarction) Status: Resolved Current Visit: Yes (6) Hypokalemia Status: Acute Assessment and plan: See plan of care listed below. Current Visit: Yes (7) Hypomagnesemia Status: Acute Assessment and plan: See plan of care listed below. Current Visit: Yes (8) Anemia Status: Acute Assessment and plan: See plan of care listed below. Current Visit: Yes Cardiology - PN: Subj Interval history: Appeals Specialist: Dr. Curtis Summary: The patient is a 71-year-old black male who had no known coronary artery disease until recently, when he was admitted to [facility] with chest pain, and diagnosed with a non-ST elevation myocardial infarction. Comorbidities include hypertension, hyperlipidemia, possible dementia. He has a history of stroke or TIA in the remote past without residual neurologic deficit that he can describe. He underwent cardiac catheterization which revealed three-vessel coronary artery disease (proximal LAD 80-90% stenosis, obtuse marginal artery 100% stenosis with left to left collateralization, RCA 90 % stenosis, LV gram EF 55% with inferolateral akinesis or dyskinesis). Echocardiogram revealed normal LV systolic function with ejection fraction 55-60 %. Grade 1 diastolic dysfunction. Mild to moderate concentric left ventricular hypertrophy. Mild mitral and tricuspid regurgitation. The patient was transferred to [facility] in anticipation of Bypass surgery. He underwent CABG April 22, [address] Mesa with FINNEY to LAD, saphenous vein graft to RCA and saphenous vein graft to obtuse marginal. April 25, 2017 Update - Patient is resting in bed in no acute distress. Currently sitting up in bed eating breakfast. He is without complaints. He denies chest pain, heaviness and tightness as well as shortness of breath. Midsternal chest incision is healing well without dehiscence or drainage. Bilateral upper extremity incision dressings are dry and intact. H&H better today at 11.4 and 33.2. Suspect there was an error in patient's lab data yesterday as patient's H&H went from 6 and 20 to 11 and 34 after just 1 unit of blood. Patient reports that he has been using incentive spirometry as instructed. He will increase his activity level today. Vital signs are stable. Telemetry has been reviewed, patient has been in normal sinus rhythm without any overt arrhythmias or ectopy. Impression and plan: 1. STATUS POST CABG - He is now postop day #3. Status post FINNEY graft to LAD , SVG to RCA and SVG to obtuse marginal. Patient is doing well postoperatively. Encouraged to continue to use incentive spirometry. 2. CORONARY ARTERY DISEASE - Clinically stable. Continue current plan of care with beta-andie, aspirin and lipid-lowering agent. 3. HYPERTENSION - Blood pressure is suboptimally controlled this morning. We will add low-dose MANAN inhibitor at this time. Will further adjust his medications as needed throughout his hospital stay. 4. HYPERLIPIDEMIA - Continue current plan of care with lipid lowering agent. 5. ANEMIA - H&H improved this morning to 11.4 and 33.2. Suspect there was an error in patient's lab data yesterday. Continue to monitor. 6. HYPOMAGNESEMIA - Resolved. Magnesium is actually high today at 2.7. Suspect there is an area patient's lab data yesterday. Will continue to monitor this. 7. HYPOKALEMIA - Resolved. There is an area patient's lab data yesterday. Continue to monitor. Further plan and addendum to follow per Dr. Obrien. Exam (Progress Note) - Constitutional Vitals: Period Temp Pulse Resp BP Sys/Wang Pulse Ox Last 24 Hr 96.6 F-100.8 F 61-88 16-20 108-166/61-85 92-97 Exam: General appearance: no acute distress, under weight - Head Head exam: Present: normal inspection, normocephalic, atraumatic - Neck Neck exam: Present: normal inspection - Respiratory Respiratory exam: Present: clear to auscultation bilaterally - Cardiovascular Cardiovascular exam: Present: regular rate and rhythm, rubs - GI/Abdominal GI/Abdominal exam: Present: normal bowel sounds, soft. Absent: firm, guarding, tenderness - Extremities Exam Extremities exam: Present: normal inspection, normal capillary refill. Absent: calf tenderness, edema - Neurological Exam Neurological exam: Present: alert, oriented X3 - Psychiatric Psychiatric exam: Present: normal affect, normal mood - Skin Skin exam: Present: normal color, warm, dry, other (Midsternal chest incision is healing well without dehiscence or drainage.) Result/EKG - Labs CBC & BMP: 04/25/17 03:38 04/25/17 03:38 Labs: Laboratory Results - last 24 hr 04/21/17 04/24/17 04/24/17 03:27 03:43 11:31 WBC RBC Hgb Hct MCV MCH MCHC RDW Plt Count MPV Neut % (Auto) Lymph % (Auto) [place] % (Auto) Eos % (Auto) Baso % (Auto) Neut # (Auto) Lymph # (Auto) [place] # (Auto) Eos # (Auto) Baso # (Auto) Immature Gran % Nucleated RBC % Immature Gran # Nucleated RBCs # Sodium Potassium Chloride Carbon Dioxide Anion Gap BUN Creatinine GFR Calculation BUN/Creatinine Ratio Glucose POC Glucose 116 H Calculated Osmolality Calcium Magnesium Blood Type A POSITIVE Antibody Screen Negative Crossmatch See Detail See Detail 04/24/17 04/24/17 04/25/17 14:40 14:40 03:38 WBC 14.1 H D 12.8 H RBC 3.87 D 3.82 Hgb 11.9 L D 11.4 L Hct 34.4 L 33.2 L MCV 88.9 86.9 L MCH 31 30 MCHC 34.6 34.3 RDW 15.0 14.9 Plt Count 140 D 146 MPV 10.6 10.9 Neut % (Auto) 89.0 H 81.1 H Lymph % (Auto) 4.8 L 9.9 L [place] % (Auto) 5.5 8.2 Eos % (Auto) 0.0 0.1 Baso % (Auto) 0.1 0.2 Neut # (Auto) 12.5 H 10.4 H Lymph # (Auto) 0.7 L 1.3 L [place] # (Auto) 0.8 1.1 H Eos # (Auto) 0.0 0.0 Baso # (Auto) 0.0 0.0 Immature Gran % 0.6 0.5 Nucleated RBC % 0.0 0.0 Immature Gran # 0.08 0.07 Nucleated RBCs # 0.00 0.00 Sodium 135 L Potassium 4.9 Chloride 100 Carbon Dioxide 26 Anion Gap 13.9 BUN 28 H D Creatinine 1.60 H GFR Calculation 51 BUN/Creatinine Ratio 17.00 Glucose 135 H POC Glucose Calculated Osmolality 277.1 Calcium 8.3 L D Magnesium 3.2 H Blood Type Antibody Screen Crossmatch 04/25/17 04/25/17 03:38 03:38 WBC RBC Hgb Hct MCV MCH MCHC RDW Plt Count MPV Neut % (Auto) Lymph % (Auto) [place] % (Auto) Eos % (Auto) Baso % (Auto) Neut # (Auto) Lymph # (Auto) [place] # (Auto) Eos # (Auto) Baso # (Auto) Immature Gran % Nucleated RBC % Immature Gran # Nucleated RBCs # Sodium 137 137 Potassium 4.6 4.5 Chloride 100 100 Carbon Dioxide 26 26 Anion Gap 15.6 H 15.5 H BUN 32 H 32 H Creatinine 1.30 1.30 GFR Calculation 65 65 BUN/Creatinine Ratio 24.00 H 24.00 H Glucose 111 H 108 H POC Glucose Calculated Osmolality 280.8 280.8 Calcium 8.6 8.4 L Magnesium 2.7 H 2.7 H Blood Type Antibody Screen Crossmatch Quality Measures - VTE Contraindication to Pharmacological VTE Prophylaxis: Active Bleeding Specialty Discharge - Follow Up or Referrals <Devi Obrien - Last Filed: 04/25/17 13:52> Assessment and Plan (1) Non-STEMI (non-ST elevated myocardial infarction) Status: Resolved Current Visit: Yes (2) Coronary artery disease Status: Chronic Assessment and plan: Postop day 3 status post coronary bypass graft Current Visit: Yes Qualifiers: Coronary Disease-Associated Artery/Lesion type: [place] artery [place] vs. transplanted heart: [place] heart Associated angina: with unspecified angina Qualified Code(s): I25.119 - Atherosclerotic heart disease of [place] coronary artery with unspecified angina pectoris (3) Hypertension Status: Chronic Current Visit: Yes Qualifiers: Hypertension type: essential hypertension Qualified Code(s): I10 - Essential (primary) hypertension (4) Hyperlipidemia Status: Chronic Current Visit: Yes Qualifiers: Hyperlipidemia type: mixed hyperlipidemia Qualified Code(s): E78.2 - Mixed hyperlipidemia (5) Renal insufficiency Status: Chronic Current Visit: Yes (6) History of stroke Status: Chronic Current Visit: Yes Cardiology - PN: Subj Interval history: Mr. Bermudez has no complaints today he looks remarkably well he has remained in sinus rhythm. He is not using his incentive spirometer I went over that again with him today. The nurses report that he has done IS with the respiratory. I had him do the incentive spirometer for me again he could not get the cylinder up to 500 cc. His family in the room ensured me that they would not make sure that he did it every 15 minutes while they were there. I told him that I want to see him top it out tomorrow Exam (Progress Note) - Constitutional Vitals: Period Temp Pulse Resp BP Sys/Wang Pulse Ox Last 24 Hr 96.8 F-99.5 F 61-88 16-20 108-166/64-85 92-97 Exam: Patient continues to have a cardiac rub it is soft. He is in sinus rhythm lungs are clear with poor inspiratory effort anteriorly he has some crackles and get better after the inspiratory effort this is sounds like atelectasis abdominal exam is unremarkable lower extremities look good. Result/EKG - Labs CBC & BMP: 04/25/17 03:38 04/25/17 03:38 Labs: Laboratory Results - last 24 hr 04/24/17 04/24/17 04/24/17 03:43 14:40 14:40 WBC 14.1 H D RBC 3.87 D Hgb 11.9 L D Hct 34.4 L MCV 88.9 MCH 31 MCHC 34.6 RDW 15.0 Plt Count 140 D MPV 10.6 Neut % (Auto) 89.0 H Lymph % (Auto) 4.8 L [place] % (Auto) 5.5 Eos % (Auto) 0.0 Baso % (Auto) 0.1 Neut # (Auto) 12.5 H Lymph # (Auto) 0.7 L [place] # (Auto) 0.8 Eos # (Auto) 0.0 Baso # (Auto) 0.0 Immature Gran % 0.6 Nucleated RBC % 0.0 Immature Gran # 0.08 Nucleated RBCs # 0.00 Sodium 135 L Potassium 4.9 Chloride 100 Carbon Dioxide 26 Anion Gap 13.9 BUN 28 H D Creatinine 1.60 H GFR Calculation 51 BUN/Creatinine Ratio 17.00 Glucose 135 H Calculated Osmolality 277.1 Calcium 8.3 L D Magnesium 3.2 H Crossmatch See Detail 04/25/17 04/25/17 04/25/17 03:38 03:38 03:38 WBC 12.8 H RBC 3.82 Hgb 11.4 L Hct 33.2 L MCV 86.9 L MCH 30 MCHC 34.3 RDW 14.9 Plt Count 146 MPV 10.9 Neut % (Auto) 81.1 H Lymph % (Auto) 9.9 L [place] % (Auto) 8.2 Eos % (Auto) 0.1 Baso % (Auto) 0.2 Neut # (Auto) 10.4 H Lymph # (Auto) 1.3 L [place] # (Auto) 1.1 H Eos # (Auto) 0.0 Baso # (Auto) 0.0 Immature Gran % 0.5 Nucleated RBC % 0.0 Immature Gran # 0.07 Nucleated RBCs # 0.00 Sodium 137 137 Potassium 4.6 4.5 Chloride 100 100 Carbon Dioxide 26 26 Anion Gap 15.6 H 15.5 H BUN 32 H 32 H Creatinine 1.30 1.30 GFR Calculation 65 65 BUN/Creatinine Ratio 24.00 H 24.00 H Glucose 111 H 108 H Calculated Osmolality 280.8 280.8 Calcium 8.6 8.4 L Magnesium 2.7 H 2.7 H Crossmatch
[2017-04-25] MEDS: ACETAMINOPHEN 325 MG TABLET PO PRN (10:30)
[2017-04-25] MEDS: LISINOPRIL 5 MG TABLET PO SCH (10:30)
[2017-04-25] MEDS: FUROSEMIDE 40 MG TABLET PO SCH (10:31)
[2017-04-25] MEDS: ASPIRIN EC 325 MG TABLET PO SCH (10:31)
[2017-04-25] MEDS: CARVEDILOL 3.125 MG TABLET PO SCH ×2 (10:31→21:52)
--- NOTE | 2017-04-25 15:20 | Cardiothoracic Progress Note ---
Assessment and Plan (1) Myocardial infarction Status: Acute Assessment and plan: Postoperative day 3 status post CABG 3. The patient has been doing very well. He is slowly regaining strength as he was deconditioned preoperatively. Currently he ambulates with assistance. He has no symptoms. I removed the pacing wires. He would likely be a candidate for discharge to a swing bed within the next 24-48 hours. Current Visit: Yes Exam (Progress Note) - Constitutional Vitals: Period Temp Pulse Resp BP Sys/Wang Pulse Ox Last 24 Hr 96.8 F-99.5 F 61-88 16-20 108-166/64-85 92-97 Result/EKG - Labs CBC & BMP: 04/25/17 03:38 04/25/17 03:38 Labs: Laboratory Results - last 24 hr 04/24/17 04/24/17 04/25/17 03:43 14:40 03:38 WBC 12.8 H RBC 3.82 Hgb 11.4 L Hct 33.2 L MCV 86.9 L MCH 30 MCHC 34.3 RDW 14.9 Plt Count 146 MPV 10.9 Neut % (Auto) 81.1 H Lymph % (Auto) 9.9 L [place] % (Auto) 8.2 Eos % (Auto) 0.1 Baso % (Auto) 0.2 Neut # (Auto) 10.4 H Lymph # (Auto) 1.3 L [place] # (Auto) 1.1 H Eos # (Auto) 0.0 Baso # (Auto) 0.0 Immature Gran % 0.5 Nucleated RBC % 0.0 Immature Gran # 0.07 Nucleated RBCs # 0.00 Sodium 135 L Potassium 4.9 Chloride 100 Carbon Dioxide 26 Anion Gap 13.9 BUN 28 H D Creatinine 1.60 H GFR Calculation 51 BUN/Creatinine Ratio 17.00 Glucose 135 H Calculated Osmolality 277.1 Calcium 8.3 L D Magnesium 3.2 H Crossmatch See Detail 04/25/17 04/25/17 03:38 03:38 WBC RBC Hgb Hct MCV MCH MCHC RDW Plt Count MPV Neut % (Auto) Lymph % (Auto) [place] % (Auto) Eos % (Auto) Baso % (Auto) Neut # (Auto) Lymph # (Auto) [place] # (Auto) Eos # (Auto) Baso # (Auto) Immature Gran % Nucleated RBC % Immature Gran # Nucleated RBCs # Sodium 137 137 Potassium 4.6 4.5 Chloride 100 100 Carbon Dioxide 26 26 Anion Gap 15.6 H 15.5 H BUN 32 H 32 H Creatinine 1.30 1.30 GFR Calculation 65 65 BUN/Creatinine Ratio 24.00 H 24.00 H Glucose 111 H 108 H Calculated Osmolality 280.8 280.8 Calcium 8.6 8.4 L Magnesium 2.7 H 2.7 H Crossmatch Quality Measures - VTE Contraindication to Pharmacological VTE Prophylaxis: Active Bleeding Specialty Discharge - Follow Up or Referrals
[2017-04-25] MEDS ORDERED: BISACODYL 5 MG TABLET PO PRN (17:33)
[2017-04-25] MEDS: ATORVASTATIN 40 MG TABLET PO SCH (21:52)
[2017-04-26 03:42] LABS: Basophils % 0.2 % (0.0-0.8); Eosinophils # 0.1 10*3/uL (0.0-0.87); Eosinophils % 0.8 % (0.00-10.9); Hematocrit 40.9 VOL% (42.0-52.0); Hemoglobin 13.4 GM/DL (14.0-18.0); Immature Granulocytes % 0.6 %; Immature Granulocytes Absolute 0.08 #; Lymphocytes # 1.4 10*3/uL (1.4-4.0); Lymphocytes % 10.6 % (21.2-54.2); Mean Corpuscular HGB Conc 32.8 GM/DL (32-36); Mean Corpuscular Hemoglobin 30 PG (27-34); Mean Corpuscular Volume 90.3 FL (87-102); Mean Platelet Volume 10.9 FL (9.6-12.0); Monocytes # 1.1 10*3/uL (0.11-0.8); Neutrophils # 10.8 10*3/uL (1.4-7.4); Neutrophils % 79.8 % (38.7-73.9); Platelet Count 182 T/CUMM (130-400); Red Blood Count 4.53 MC/CUMM (3.8-5.5); Red Cell Distribution Width 14.8 % (9.3-17.3); White Blood Count 13.6 T/CUMM (4-12)
[2017-04-26 03:55] LABS: Calcium 8.9 MG/DL (8.5-10.1); Magnesium 2.4 MG/DL (1.8-2.4); Osmolality,Calculated 282.8 MOS/KG (273-304); Potassium 4.7 MMOL/L (3.5-5.1)
--- NOTE | 2017-04-26 06:37 | XRay Report ---
XR chest 1V portable Indication: Chest tube removal. Comparison: Chest x-ray 04/25/2017 Technique: Portable AP chest was performed. Findings: The cardiomediastinal silhouette is stable. Right IJ central venous catheter has been removed. Some improved definition of the right hemidiaphragm is noted. The lung parenchyma bilaterally demonstrates residual interstitial stranding and scattered airspace opacities with little change suggested since comparison study. Upper lungs are clear. Bones and soft tissues demonstrate no significant abnormalities. Impression: 1. Some improvement in aeration of the right lung base is noted. Otherwise bilateral interstitial and airspace opacities suggests little change and are favored to represent atelectatic change. PA/lateral chest x-rays recommended for further evaluation. 04/26/2017 6:33 AM PROCEDURE INTERPRETED AT [facility] DEPARTMENT OF RADIOLOGY Final Report Signed by: Dr. Osman Acevedo
[2017-04-26] MEDS: ASPIRIN EC 325 MG TABLET PO SCH (08:40)
[2017-04-26] MEDS: CARVEDILOL 3.125 MG TABLET PO SCH ×2 (08:40→21:08)
[2017-04-26] MEDS: LISINOPRIL 5 MG TABLET PO SCH (08:40)
[2017-04-26] MEDS: FUROSEMIDE 40 MG TABLET PO SCH (08:40)
--- NOTE | 2017-04-26 09:37 | Cardiothoracic Progress Note ---
Assessment and Plan (1) Myocardial infarction Status: Acute Assessment and plan: Postoperative day 4 status post CABG 3. The patient has been doing very well. He is slowly regaining strength as he was deconditioned preoperatively. Currently he ambulates with assistance. He has no symptoms. Will continue to work with physical therapy and occupational therapy today with anticipated discharge tomorrow to swing bed. Current Visit: Yes Exam (Progress Note) - Constitutional Vitals: Period Temp Pulse Resp BP Sys/Wang Pulse Ox Last 24 Hr 97.6 F-98.8 F 63-72 18-22 109-131/60-78 91-97 Result/EKG - Labs CBC & BMP: 04/26/17 03:36 04/26/17 03:36 Labs: Laboratory Results - last 24 hr 04/26/17 04/26/17 03:36 03:36 WBC 13.6 H RBC 4.53 Hgb 13.4 L D Hct 40.9 L MCV 90.3 MCH 30 MCHC 32.8 RDW 14.8 Plt Count 182 D MPV 10.9 Neut % (Auto) 79.8 H Lymph % (Auto) 10.6 L [place] % (Auto) 8.0 Eos % (Auto) 0.8 Baso % (Auto) 0.2 Neut # (Auto) 10.8 H Lymph # (Auto) 1.4 [place] # (Auto) 1.1 H Eos # (Auto) 0.1 Baso # (Auto) 0.0 Immature Gran % 0.6 Nucleated RBC % 0.0 Immature Gran # 0.08 Nucleated RBCs # 0.00 Sodium 137 Potassium 4.7 Chloride 102 Carbon Dioxide 23 Anion Gap 16.7 H BUN 38 H Creatinine 1.50 H GFR Calculation 55 BUN/Creatinine Ratio 25.00 H Glucose 108 H Calculated Osmolality 282.8 Calcium 8.9 Magnesium 2.4 Quality Measures - VTE Contraindication to Pharmacological VTE Prophylaxis: Active Bleeding Specialty Discharge - Follow Up or Referrals
--- NOTE | 2017-04-26 10:19 | Cardiology Progress Note ---
<Mckayla Cavanaugh - Last Filed: 04/26/17 10:16> Assessment and Plan (1) Status post aorto-coronary artery bypass graft Status: Acute Assessment and plan: See plan of care listed below. Current Visit: Yes (2) Coronary artery disease Status: Chronic Assessment and plan: See plan of care listed below. Current Visit: Yes Qualifiers: Coronary Disease-Associated Artery/Lesion type: [place] artery [place] vs. transplanted heart: [place] heart Associated angina: with unspecified angina Qualified Code(s): I25.119 - Atherosclerotic heart disease of [place] coronary artery with unspecified angina pectoris (3) Hyperlipidemia Status: Chronic Assessment and plan: See plan of care listed below. Current Visit: Yes Qualifiers: Hyperlipidemia type: mixed hyperlipidemia Qualified Code(s): E78.2 - Mixed hyperlipidemia (4) Hypertension Status: Chronic Assessment and plan: See plan of care listed below. Current Visit: Yes Qualifiers: Hypertension type: essential hypertension Qualified Code(s): I10 - Essential (primary) hypertension (5) Non-STEMI (non-ST elevated myocardial infarction) Status: Resolved Current Visit: Yes (6) Hypokalemia Status: Acute Assessment and plan: See plan of care listed below. Current Visit: Yes (7) Hypomagnesemia Status: Acute Assessment and plan: See plan of care listed below. Current Visit: Yes (8) Anemia Status: Acute Assessment and plan: See plan of care listed below. Current Visit: Yes Cardiology - PN: Subj Interval history: College Teacher: Dr. Curtis Summary: The patient is a 71-year-old black male who had no known coronary artery disease until recently, when he was admitted to [facility] with chest pain, and diagnosed with a non-ST elevation myocardial infarction. Comorbidities include hypertension, hyperlipidemia, possible dementia. He has a history of stroke or TIA in the remote past without residual neurologic deficit that he can describe. He underwent cardiac catheterization which revealed three-vessel coronary artery disease (proximal LAD 80-90% stenosis, obtuse marginal artery 100% stenosis with left to left collateralization, RCA 90 % stenosis, LV gram EF 55% with inferolateral akinesis or dyskinesis). Echocardiogram revealed normal LV systolic function with ejection fraction 55-60 %. Grade 1 diastolic dysfunction. Mild to moderate concentric left ventricular hypertrophy. Mild mitral and tricuspid regurgitation. The patient was transferred to [facility] in anticipation of Bypass surgery. He underwent CABG April 22, [address] Mesa with FINNEY to LAD, saphenous vein graft to RCA and saphenous vein graft to obtuse marginal. April 26, 2017 Update - Patient was seen and examined on the telemetry unit. Currently sitting up in chair in no acute distress, not requiring oxygen. He is without complaints. He denies chest pain, heaviness and tightness as well as shortness of breath. Midsternal chest incision is healing well without dehiscence or drainage. Bilateral lower extremity incisions healing well. H&H stable. Patient reports that he has been using incentive spirometry occasionally. Reports that he increased his activity level yesterday and tolerated well. Vital signs are stable. Telemetry has been reviewed, patient has been in normal sinus rhythm without any overt arrhythmias or ectopy. Impression and plan: 1. STATUS POST CABG - He is now postop day #4. Status post FINNEY graft to LAD , SVG to RCA and SVG to obtuse marginal. Patient is doing well postoperatively. Encouraged to continue to use incentive spirometry and increased activity. 2. CORONARY ARTERY DISEASE - Clinically stable. Continue current plan of care with beta-andie, aspirin and lipid-lowering agent. 3. HYPERTENSION - Currently, under well control. Will further adjust his medications as needed throughout his hospital stay. 4. HYPERLIPIDEMIA - Continue current plan of care with lipid lowering agent. 5. ANEMIA - H&H stable at 10.4 and 32.0. Continue to monitor. 6. HYPOMAGNESEMIA - Resolved. 7. HYPOKALEMIA - Resolved. Further plan and addendum to follow per Dr. Obrien. Exam (Progress Note) - Constitutional Vitals: Period Temp Pulse Resp BP Sys/Wang Pulse Ox Last 24 Hr 97.6 F-98.8 F 63-72 18-22 109-131/60-78 91-97 Exam: General appearance: no acute distress, under weight - Head Head exam: Present: normal inspection, normocephalic, atraumatic - Neck Neck exam: Present: normal inspection - Respiratory Respiratory exam: Present: clear to auscultation bilaterally - Cardiovascular Cardiovascular exam: Present: regular rate and rhythm, rubs (soft) - GI/Abdominal GI/Abdominal exam: Present: normal bowel sounds, soft. Absent: firm, guarding, tenderness - Extremities Exam Extremities exam: Present: normal inspection, normal capillary refill. Absent: calf tenderness, edema - Neurological Exam Neurological exam: Present: alert, oriented X3 - Psychiatric Psychiatric exam: Present: normal affect, normal mood - Skin Skin exam: Present: normal color, warm, dry, other (Midsternal chest incision is healing well without dehiscence or drainage.) (Lower extremity incisions healing well without dehiscence or drainage.) Result/EKG - Labs CBC & BMP: 04/26/17 03:36 04/26/17 03:36 Lab Results: I have reviewed the past 24 hour labs Labs: Laboratory Results - last 24 hr 04/26/17 04/26/17 03:36 03:36 WBC 13.6 H RBC 4.53 Hgb 13.4 L D Hct 40.9 L MCV 90.3 MCH 30 MCHC 32.8 RDW 14.8 Plt Count 182 D MPV 10.9 Neut % (Auto) 79.8 H Lymph % (Auto) 10.6 L [place] % (Auto) 8.0 Eos % (Auto) 0.8 Baso % (Auto) 0.2 Neut # (Auto) 10.8 H Lymph # (Auto) 1.4 Jay # (Auto) 1.1 H Eos # (Auto) 0.1 Baso # (Auto) 0.0 Immature Gran % 0.6 Nucleated RBC % 0.0 Immature Gran # 0.08 Nucleated RBCs # 0.00 Sodium 137 Potassium 4.7 Chloride 102 Carbon Dioxide 23 Anion Gap 16.7 H BUN 38 H Creatinine 1.50 H GFR Calculation 55 BUN/Creatinine Ratio 25.00 H Glucose 108 H Calculated Osmolality 282.8 Calcium 8.9 Magnesium 2.4 Quality Measures - VTE Contraindication to Pharmacological VTE Prophylaxis: Active Bleeding Specialty Discharge - Follow Up or Referrals <Devi Obrien - Last Filed: 04/26/17 10:49> Assessment and Plan (1) Non-STEMI (non-ST elevated myocardial infarction) Status: Resolved Current Visit: Yes (2) Coronary artery disease Status: Chronic Current Visit: Yes Qualifiers: Coronary Disease-Associated Artery/Lesion type: [place] artery [place] vs. transplanted heart: [place] heart Associated angina: with unspecified angina Qualified Code(s): I25.119 - Atherosclerotic heart disease of [place] coronary artery with unspecified angina pectoris (3) Hypertension Status: Chronic Current Visit: Yes Qualifiers: Hypertension type: essential hypertension Qualified Code(s): I10 - Essential (primary) hypertension (4) Hyperlipidemia Status: Chronic Current Visit: Yes Qualifiers: Hyperlipidemia type: mixed hyperlipidemia Qualified Code(s): E78.2 - Mixed hyperlipidemia (5) Renal insufficiency Status: Chronic Current Visit: Yes (6) History of stroke Status: Chronic Current Visit: Yes Cardiology - PN: Subj Interval history: Discussed with Ms. Cavanaugh. The patient looks amazingly good. He is status post coronary bypass grafting 3. Is a little difficult to motivate him to get up and about and uses incentive spirometer but he looks remarkably good. He has had no dysrhythmias and no complaints. He appears to be well ahead of the routine postoperative curve. He is rather stoic but has no real complaints. Exam (Progress Note) - Constitutional Vitals: Period Temp Pulse Resp BP Sys/Wang Pulse Ox Last 24 Hr 97.6 F-98.8 F 63-72 18-22 109-131/60-78 91-97 Exam: Rub is less prominent. He has a little bit better effort on his incentive spirometer today he got the large cylinder up to just around 500 cc. His incision looks great. Lower extremities look good. I again encourage incentive spirometer use. Intermittent remainder of the physical exam agree with as above. Result/EKG - Labs CBC & BMP: 04/26/17 03:36 04/26/17 03:36 Labs: Laboratory Results - last 24 hr 04/26/17 04/26/17 03:36 03:36 WBC 13.6 H RBC 4.53 Hgb 13.4 L D Hct 40.9 L MCV 90.3 MCH 30 MCHC 32.8 RDW 14.8 Plt Count 182 D MPV 10.9 Neut % (Auto) 79.8 H Lymph % (Auto) 10.6 L [place] % (Auto) 8.0 Eos % (Auto) 0.8 Baso % (Auto) 0.2 Neut # (Auto) 10.8 H Lymph # (Auto) 1.4 Jay # (Auto) 1.1 H Eos # (Auto) 0.1 Baso # (Auto) 0.0 Immature Gran % 0.6 Nucleated RBC % 0.0 Immature Gran # 0.08 Nucleated RBCs # 0.00 Sodium 137 Potassium 4.7 Chloride 102 Carbon Dioxide 23 Anion Gap 16.7 H BUN 38 H Creatinine 1.50 H GFR Calculation 55 BUN/Creatinine Ratio 25.00 H Glucose 108 H Calculated Osmolality 282.8 Calcium 8.9 Magnesium 2.4
[2017-04-26] MEDS: ATORVASTATIN 40 MG TABLET PO SCH (21:08)
[2017-04-27 06:31] LABS: Basophils % 0.3 % (0.0-0.8); Eosinophils # 0.1 10*3/uL (0.0-0.87); Eosinophils % 1.2 % (0.00-10.9); Hematocrit 35.6 VOL% (42.0-52.0); Hemoglobin 11.9 GM/DL (14.0-18.0); Immature Granulocytes % 0.7 %; Immature Granulocytes Absolute 0.07 #; Lymphocytes # 1.2 10*3/uL (1.4-4.0); Lymphocytes % 11.8 % (21.2-54.2); Mean Corpuscular HGB Conc 33.4 GM/DL (32-36); Mean Corpuscular Hemoglobin 30 PG (27-34); Mean Corpuscular Volume 88.8 FL (87-102); Mean Platelet Volume 10.5 FL (9.6-12.0); Monocytes # 1.3 10*3/uL (0.11-0.8); Monocytes % 12.7 % (1.7-12.7); Neutrophils # 7.2 10*3/uL (1.4-7.4); Neutrophils % 73.3 % (38.7-73.9); Platelet Count 219 T/CUMM (130-400); Red Blood Count 4.01 MC/CUMM (3.8-5.5); Red Cell Distribution Width 14.3 % (9.3-17.3); White Blood Count 9.8 T/CUMM (4-12)
[2017-04-27 07:29] LABS: Calcium 8.5 MG/DL (8.5-10.1); Magnesium 2.3 MG/DL (1.8-2.4); Osmolality,Calculated 288.5 MOS/KG (273-304); Potassium 4.1 MMOL/L (3.5-5.1)
[2017-04-27] MEDS: CARVEDILOL 3.125 MG TABLET PO SCH ×2 (09:16→21:25)
[2017-04-27] MEDS: FUROSEMIDE 40 MG TABLET PO SCH (09:16)
[2017-04-27] MEDS: ASPIRIN EC 325 MG TABLET PO SCH (09:16)
[2017-04-27] MEDS: LISINOPRIL 5 MG TABLET PO SCH (09:16)
--- NOTE | 2017-04-27 09:31 | Cardiothoracic Progress Note ---
Assessment and Plan (1) Myocardial infarction Status: Acute Assessment and plan: Postoperative day 5 status post CABG 3. The patient has been doing very well. Will transfer to swing bed later today. Current Visit: Yes Exam (Progress Note) - Constitutional Vitals: Period Temp Pulse Resp BP Sys/Wang Pulse Ox Last 24 Hr 98.8 F-99.7 F 66-76 16-19 95-126/58-77 90-100 Result/EKG - Labs CBC & BMP: 04/27/17 06:00 04/27/17 06:00 Labs: Laboratory Results - last 24 hr 04/27/17 04/27/17 06:00 06:00 WBC 9.8 RBC 4.01 Hgb 11.9 L Hct 35.6 L MCV 88.8 MCH 30 MCHC 33.4 RDW 14.3 Plt Count 219 D MPV 10.5 Neut % (Auto) 73.3 Lymph % (Auto) 11.8 L [place] % (Auto) 12.7 Eos % (Auto) 1.2 Baso % (Auto) 0.3 Neut # (Auto) 7.2 Lymph # (Auto) 1.2 L [place] # (Auto) 1.3 H Eos # (Auto) 0.1 Baso # (Auto) 0.0 Immature Gran % 0.7 Nucleated RBC % 0.0 Immature Gran # 0.07 Nucleated RBCs # 0.00 Sodium 139 Potassium 4.1 Chloride 103 Carbon Dioxide 24 Anion Gap 16.1 H BUN 42 H Creatinine 1.40 H GFR Calculation 60 BUN/Creatinine Ratio 30.00 H Glucose 110 H Calculated Osmolality 288.5 Calcium 8.5 Magnesium 2.3 Quality Measures - VTE Contraindication to Pharmacological VTE Prophylaxis: Active Bleeding Specialty Discharge - Follow Up or Referrals
--- NOTE | 2017-04-27 11:30 | Event Note ---
The patient was getting a bath when I came to see him. I did not examine his they were cleaning him he has no complaints. Nothing further at I reviewed his telemetry and Dr. Mesa's note per
[2017-04-27] MEDS: ACETAMINOPHEN 325 MG TABLET PO PRN (11:56)
--- NOTE | 2017-04-27 12:43 | XRay Report ---
Exam: XR chest 1V portable Indication: Shortness of breath Comparison study: 04/26/2017 Findings: Cardiac silhouette is mildly enlarged, similar to prior. Elevated left hemidiaphragm is similar prior with mild dilatation of the splenic flexure colon beneath left hemidiaphragm. There are patchy opacities within the left lung base, which are increased from prior may represent minimal atelectasis. A trace pleural effusion is not excluded. Slight improved aeration is noted within the right lung base. Upper lungs are predominantly clear. Median sternotomy wires noted. There is no pneumothorax. Impression: Slight improved aeration within the right lung base. Minimal residual left basilar opacities may represent atelectasis and/or trace pleural fluid and. Similar mild cardiomegaly and elevation of the left hemidiaphragm. PROCEDURE INTERPRETED AT [facility] DEPARTMENT OF RADIOLOGY Final Report Signed by: Manuel Marte
[2017-04-27] MEDS ORDERED: LEVOFLOXACIN 500 MG TABLET PO SCH (13:00)
[2017-04-27] MEDS: LEVOFLOXACIN 500 MG TABLET PO SCH (18:09)
[2017-04-27 18:16] LABS: Apearance,Urine Slightly Hazy (Clear); Bilirubin,Urine Negative (Negative); Blood, Urine Small mg/dL (Negative); Glucose,Urine (UA) Negative (Negative); Hyaline Casts,Urine 2 /LPF (0-3); Ketones,Urine Negative (Negative); Mucus,Urine Occasional /LPF (Occasional); Nitrite,Urine Negative (Negative); Protein,Urine 30 MG/DL; RBC,Urine 3 /HPF (0-4); Squamous Epithelial Cell,Urine Occasional /HPF (0-10); Urine Color Yellow (Yellow); Urine Specific Gravity 1.015 (1.001-1.035); WBC,Urine 3 /HPF (0-6)
[2017-04-27] MEDS: ATORVASTATIN 40 MG TABLET PO SCH (21:25)
[2017-04-28 04:42] LABS: Basophils % 0.3 % (0.0-0.8); Eosinophils # 0.1 10*3/uL (0.0-0.87); Eosinophils % 0.8 % (0.00-10.9); Hematocrit 35.5 VOL% (42.0-52.0); Hemoglobin 12.1 GM/DL (14.0-18.0); Immature Granulocytes % 0.9 %; Lymphocytes # 1.4 10*3/uL (1.4-4.0); Lymphocytes % 12.6 % (21.2-54.2); Mean Corpuscular HGB Conc 34.1 GM/DL (32-36); Mean Corpuscular Hemoglobin 31 PG (27-34); Mean Corpuscular Volume 89.6 FL (87-102); Mean Platelet Volume 10.5 FL (9.6-12.0); Monocytes # 1.6 10*3/uL (0.11-0.8); Monocytes % 14.5 % (1.7-12.7); Neutrophils # 7.7 10*3/uL (1.4-7.4); Neutrophils % 70.9 % (38.7-73.9); Platelet Count 249 T/CUMM (130-400); Red Blood Count 3.96 MC/CUMM (3.8-5.5); Red Cell Distribution Width 14.4 % (9.3-17.3); White Blood Count 10.9 T/CUMM (4-12)
[2017-04-28 05:14] LABS: Calcium 8.8 MG/DL (8.5-10.1); Magnesium 2.2 MG/DL (1.8-2.4); Osmolality,Calculated 289.4 MOS/KG (273-304); Potassium 4.4 MMOL/L (3.5-5.1)
[2017-04-28] MEDS: LISINOPRIL 5 MG TABLET PO SCH (09:07)
[2017-04-28] MEDS: ASPIRIN EC 325 MG TABLET PO SCH (09:07)
[2017-04-28] MEDS: LEVOFLOXACIN 500 MG TABLET PO SCH (09:07)
[2017-04-28] MEDS: FUROSEMIDE 40 MG TABLET PO SCH (09:07)
[2017-04-28] MEDS: CARVEDILOL 3.125 MG TABLET PO SCH ×2 (09:07→21:05)
--- NOTE | 2017-04-28 10:53 | Cardiology Progress Note ---
Assessment and Plan (1) Non-STEMI (non-ST elevated myocardial infarction) Status: Resolved Current Visit: Yes (2) Coronary artery disease Status: Chronic Assessment and plan: status post coronary bypass graft Current Visit: Yes Qualifiers: Coronary Disease-Associated Artery/Lesion type: [place] artery [place] vs. transplanted heart: [place] heart Associated angina: with unspecified angina Qualified Code(s): I25.119 - Atherosclerotic heart disease of [place] coronary artery with unspecified angina pectoris (3) Hypertension Status: Chronic Current Visit: Yes Qualifiers: Hypertension type: essential hypertension Qualified Code(s): I10 - Essential (primary) hypertension (4) Hyperlipidemia Status: Chronic Current Visit: Yes Qualifiers: Hyperlipidemia type: mixed hyperlipidemia Qualified Code(s): E78.2 - Mixed hyperlipidemia (5) Renal insufficiency Status: Chronic Current Visit: Yes (6) History of stroke Status: Chronic Current Visit: Yes Cardiology - PN: Subj Interval history: Mr. Bermudez has no complaints today. He is remained in sinus rhythm on telemetry. No chest pain no shortness of breath. He has no complaints. He sitting up in the bed his is at the bedside. Exam (Progress Note) - Constitutional Vitals: Period Temp Pulse Resp BP Sys/Wang Pulse Ox Last 24 Hr 97.5 F-101.1 F 65-86 16-20 92-146/56-79 91-99 General appearance: under weight - Head Head exam: Present: normal inspection - Eye Eye exam: Present: EOMI Pupils: Present: DEREK - Respiratory Respiratory exam: Present: clear to auscultation bilaterally (His effort continues to improve still less than stellar.) - Cardiovascular Cardiovascular exam: Present: regular rate and rhythm - GI/Abdominal GI/Abdominal exam: Present: normal bowel sounds - Neurological Exam Neurological exam: Present: alert, oriented X3 Result/EKG - Labs CBC & BMP: 04/28/17 03:49 04/28/17 03:50 Labs: Laboratory Results - last 24 hr 04/27/17 04/28/17 04/28/17 Unknown 03:49 03:50 WBC 10.9 RBC 3.96 Hgb 12.1 L Hct 35.5 L MCV 89.6 MCH 31 MCHC 34.1 RDW 14.4 Plt Count 249 MPV 10.5 Neut % (Auto) 70.9 Lymph % (Auto) 12.6 L [place] % (Auto) 14.5 H Eos % (Auto) 0.8 Baso % (Auto) 0.3 Neut # (Auto) 7.7 H Lymph # (Auto) 1.4 [place] # (Auto) 1.6 H Eos # (Auto) 0.1 Baso # (Auto) 0.0 Immature Gran % 0.9 Nucleated RBC % 0.0 Immature Gran # 0.10 Nucleated RBCs # 0.00 Sodium 140 Potassium 4.4 Chloride 102 Carbon Dioxide 26 Anion Gap 16.4 H BUN 42 H Creatinine 1.40 H GFR Calculation 60 BUN/Creatinine Ratio 30.00 H Glucose 102 Calculated Osmolality 289.4 Calcium 8.8 Magnesium 2.2 Urine Color Yellow Urine Appearance Slightly hazy Urine pH 5.0 Ur Specific [place] 1.015 Urine Protein 30 Urine Glucose (UA) Negative Urine Ketones Negative Urine Blood Small Urine Nitrate Negative Urine Bilirubin Negative Urine Urobilinogen 4.0 H Urine Leukocytes Negative Urine RBC 3 Urine WBC 3 Ur Squamous Epith Cells Occasional Hyaline Casts 2 Urine Mucus Occasional Ur Culture Indicated? Not indicated Quality Measures - VTE Contraindication to Pharmacological VTE Prophylaxis: Active Bleeding Specialty Discharge - Follow Up or Referrals
[2017-04-28] MEDS: ATORVASTATIN 40 MG TABLET PO SCH (21:05)
[2017-04-29 05:07] LABS: Basophils % 0.2 % (0.0-0.8); Eosinophils # 0.1 10*3/uL (0.0-0.87); Eosinophils % 0.7 % (0.00-10.9); Hematocrit 34.9 VOL% (42.0-52.0); Hemoglobin 11.7 GM/DL (14.0-18.0); Immature Granulocytes % 1.1 %; Immature Granulocytes Absolute 0.13 #; Lymphocytes # 1.7 10*3/uL (1.4-4.0); Lymphocytes % 13.9 % (21.2-54.2); Mean Corpuscular HGB Conc 33.5 GM/DL (32-36); Mean Corpuscular Hemoglobin 30 PG (27-34); Mean Corpuscular Volume 89.5 FL (87-102); Mean Platelet Volume 10.1 FL (9.6-12.0); Monocytes # 1.2 10*3/uL (0.11-0.8); Monocytes % 10.1 % (1.7-12.7); Neutrophils # 9.1 10*3/uL (1.4-7.4); Platelet Count 301 T/CUMM (130-400); Red Cell Distribution Width 14.3 % (9.3-17.3); White Blood Count 12.3 T/CUMM (4-12)
[2017-04-29 05:50] LABS: Calcium 8.8 MG/DL (8.5-10.1); Magnesium 2.3 MG/DL (1.8-2.4); Osmolality,Calculated 282.8 MOS/KG (273-304); Potassium 4.3 MMOL/L (3.5-5.1)
--- NOTE | 2017-04-29 08:46 | Discharge Summary ---
Hospital Course - Hospital Course Hospital Course: Patient came as a transfer from January after he had a left heart cath showing severe three-vessel disease with a non-ST elevation myocardial infarction. The patient was admitted to the ICU and started on heparin drip as the patient was on Plavix and we waited on the Plavix effect to wean. During his initial stay he had a very transient episode of chest pain that was relieved by nitroglycerin. 3 days after transfer he was taken to the OR and a CABG was performed without any problems. He was admitted to the ICU. He was extubated 4 hours later. He was doing very well hemodynamically. Postoperative day 1 the patient was doing very well without any problems. He was transferred to telemetry. He had minimal chest tube output. Postoperative day 2 the chest tubes were removed and pacing wires were removed. The patient started to get out of bed. He was noted to be having malnutrition and deconditioning at baseline. He required physical therapy and occupational therapy. He was rejected by rehab due to his deconditioning. He was later accepted to swing bed. He continued to improve during his stay and he continued to work on his strength. Eventually postoperative day 7 he was ready for discharge to swing bed. Diagnosis - Discharge Diagnosis (1) Myocardial infarction Status: Acute Specialty Discharge - Follow Up or Referrals Follow up with: Amador Mesa [Physician] - Discharge Plan - Discharge Data Disposition: Disch/Xfer to Snf Condition at Discharge: Stable Discharge Diet: advance to your usual diet Activity: resume usual activities as tolerated Hygiene: no restrictions Contact your physician if you experience:: fever over 101, Difficulty voiding, Nausea/Vomiting, Shortness of breath - Discharge Medications New Acetaminophen Tab [Tylenol Tab] 650 mg PO Q4H PRN tablet PRN Reason: Fever, Headache, Mild Pain Aspirin EC Tab 325 mg PO DAILY tablet Magnesium Sulf Eran [Magnesium Sulfate Inj] 2 gm IV .PER PROTOCOL PRN PRN Reason: Per Protocol Atorvastatin [Lipitor] 40 mg PO BEDTIME tablet Bisacodyl Tab [Dulcolax Tab] 10 mg PO DAILY PRN tablet PRN Reason: Constipation Calcium Chloride 250 mg IV ONCE PRN syringe PRN Reason: MAP <60 w/ IVF & Norepinephrin Carvedilol [Coreg] 3.125 mg PO BID tablet Furosemide Tab [Lasix Tab] 40 mg PO DAILY tablet Levofloxacin Tab [Levaquin Tab] 500 mg PO DAILY tablet Lisinopril [Prinivil] 5 mg PO DAILY tablet Polyethylene Glycol Powder [Miralax] 17 gm PO DAILY PRN PRN Reason: Constipation Continue Sertraline HCl 50 mg PO DAILY Losartan/Hydrochlorothiazide [Losartan-Hctz 100-12.5 mg Tab] 12.5 - 100 mg PO DAILY Amlodipine Besylate 5 mg PO DAILY Discontinued Aspirin [Aspirin EC] 81 mg PO DAILY - Follow Up or Referral - Forms/Instructions Instructions: Myocardial Infarction (GEN), Coronary Artery Bypass Graft (DC), Heart Healthy Diet (GEN), Sternal Precautions (GEN) Exam - Constitutional Vitals: Period Temp Pulse Resp BP Sys/Wang Pulse Ox Last 24 Hr 97.7 F-98.8 F 65-76 16-18 108-164/63-88 90-100 Discharge Results Procedures and tests throughout hospitalization: Pending Orders 04/21/17 03:27 Fresh Frozen Plasma IN AM Red Blood Cells Leuko Red IN AM Single Donor Platelets IN AM Type and Screen Routine Labs on day of discharge: Labs from last 24 hours 04/29/17 04/29/17 04:28 04:28 WBC 12.3 H RBC 3.90 Hgb 11.7 L Hct 34.9 L MCV 89.5 MCH 30 MCHC 33.5 RDW 14.3 Plt Count 301 D MPV 10.1 Neut % (Auto) 74.0 H Lymph % (Auto) 13.9 L [place] % (Auto) 10.1 Eos % (Auto) 0.7 Baso % (Auto) 0.2 Neut # (Auto) 9.1 H Lymph # (Auto) 1.7 [place] # (Auto) 1.2 H Eos # (Auto) 0.1 Baso # (Auto) 0.0 Immature Gran % 1.1 Nucleated RBC % 0.0 Immature Gran # 0.13 Nucleated RBCs # 0.00 Sodium 137 Potassium 4.3 Chloride 101 Carbon Dioxide 25 Anion Gap 15.3 H BUN 40 H Creatinine 1.50 H GFR Calculation 55 BUN/Creatinine Ratio 26.00 H Glucose 98 Calculated Osmolality 282.8 Calcium 8.8 Magnesium 2.3 DS: Provider Date of admission: 04/19/17 18:30 Primary care physician: . No PCP Attending physician on admission: Amador Mesa Consults: 04/19/17 18:23 Consult to Dietitian [CONS] Routine Reason for Dietitian: Other Consult Comment: low salt, low cholesterol, diet 04/19/17 19:01 Consult to Dietitian [CONS] Routine Reason for Dietitian: Other Consult Comment: computer generated 04/22/17 11:02 Consult to Occupational Therapy [CONS] Routine Reason for Occupational Therapy: Evaluate and Treat Start Therapy: Tomorrow Consult to Physical Therapy [CONS] Routine Reason for Physical Therapy: Evaluate and Treat Start Therapy: Tomorrow 04/23/17 15:12 Consult to Case Mgmt/Social Srvs [CONS] Routine Reason for Case Mgmt/Social Srvs: Rehab Discharging clinician: Amador Mesa Expected date of discharge: 04/29/17
[2017-04-29] MEDS: LEVOFLOXACIN 500 MG TABLET PO SCH (08:59)
[2017-04-29] MEDS: ASPIRIN EC 325 MG TABLET PO SCH (08:59)
[2017-04-29] MEDS: FUROSEMIDE 40 MG TABLET PO SCH (08:59)
[2017-04-29] MEDS: LISINOPRIL 5 MG TABLET PO SCH (08:59)
[2017-04-29] MEDS: CARVEDILOL 3.125 MG TABLET PO SCH (08:59)
--- NOTE | 2017-04-29 11:24 | Cardiology Progress Note ---
Assessment and Plan (1) Status post aorto-coronary artery bypass graft Status: Acute Assessment and plan: See plan of care listed below. Current Visit: Yes (2) Coronary artery disease Status: Chronic Assessment and plan: See plan of care listed below. Current Visit: Yes Qualifiers: Coronary Disease-Associated Artery/Lesion type: [place] artery [place] vs. transplanted heart: [place] heart Associated angina: with unspecified angina Qualified Code(s): I25.119 - Atherosclerotic heart disease of [place] coronary artery with unspecified angina pectoris (3) Hyperlipidemia Status: Chronic Assessment and plan: See plan of care listed below. Current Visit: Yes Qualifiers: Hyperlipidemia type: mixed hyperlipidemia Qualified Code(s): E78.2 - Mixed hyperlipidemia (4) Hypertension Status: Chronic Assessment and plan: See plan of care listed below. Current Visit: Yes Qualifiers: Hypertension type: essential hypertension Qualified Code(s): I10 - Essential (primary) hypertension (5) Non-STEMI (non-ST elevated myocardial infarction) Status: Resolved Current Visit: Yes (6) Hypokalemia Status: Acute Assessment and plan: See plan of care listed below. Current Visit: Yes (7) Hypomagnesemia Status: Acute Assessment and plan: See plan of care listed below. Current Visit: Yes (8) Anemia Status: Acute Assessment and plan: See plan of care listed below. Current Visit: Yes Cardiology - PN: Subj Interval history: Systems Architect: Dr. Curtis Summary: The patient is a 71-year-old black male who had no known coronary artery disease until recently, when he was admitted to [facility] with chest pain, and diagnosed with a non-ST elevation myocardial infarction. Comorbidities include hypertension, hyperlipidemia, possible dementia. He has a history of stroke or TIA in the remote past without residual neurologic deficit that he can describe. He underwent cardiac catheterization which revealed three-vessel coronary artery disease (proximal LAD 80-90% stenosis, obtuse marginal artery 100% stenosis with left to left collateralization, RCA 90 % stenosis, LV gram EF 55% with inferolateral akinesis or dyskinesis). Echocardiogram revealed normal LV systolic function with ejection fraction 55-60 %. Grade 1 diastolic dysfunction. Mild to moderate concentric left ventricular hypertrophy. Mild mitral and tricuspid regurgitation. The patient was transferred to [facility] in anticipation of Bypass surgery. He underwent CABG April 22, [address] Andrews with FINNEY to LAD, saphenous vein graft to RCA and saphenous vein graft to obtuse marginal. April 29, 2017 Update - Patient was seen and examined on the telemetry unit. Currently sitting up in chair in no acute distress, not requiring oxygen. He is without complaints. He denies chest pain, heaviness and tightness as well as shortness of breath. Midsternal chest incision is healing well without dehiscence or drainage. Bilateral lower extremity incisions healing well. H&H stable. Patient is being discharged to swing bed later today. Discharge summary has been reviewed. Recommend that patient continues lisinopril and discontinue use losartan/chlorothiazide. Patient will be given up appointment with Dr. Curtis. Vital signs are stable. Telemetry has been reviewed, patient has been in normal sinus rhythm without any overt arrhythmias or ectopy. Impression and plan: 1. STATUS POST CABG - He is now postop day #7. Status post FINNEY graft to LAD , SVG to RCA and SVG to obtuse marginal. Patient is doing well postoperatively. Encouraged to continue to use incentive spirometry and increased activity. 2. CORONARY ARTERY DISEASE - Clinically stable. Continue current plan of care with beta-andie, aspirin and lipid-lowering agent. 3. HYPERTENSION - Currently, under well control. Will further adjust his medications as needed throughout his hospital stay. 4. HYPERLIPIDEMIA - Continue current plan of care with lipid lowering agent. 5. ANEMIA - H&H stable at 10.4 and 32.0. Continue to monitor. 6. HYPOMAGNESEMIA - Resolved. 7. HYPOKALEMIA - Resolved. Further plan and addendum to follow per Dr. Singletary. Exam (Progress Note) - Constitutional Vitals: Period Temp Pulse Resp BP Sys/Wang Pulse Ox Last 24 Hr 97.7 F-98.8 F 65-76 16-18 108-164/63-88 90-100 Exam: General appearance: no acute distress, under weight - Head Head exam: Present: normal inspection, normocephalic, atraumatic - Neck Neck exam: Present: normal inspection - Respiratory Respiratory exam: Present: clear to auscultation bilaterally - Cardiovascular Cardiovascular exam: Present: regular rate and rhythm - GI/Abdominal GI/Abdominal exam: Present: normal bowel sounds, soft. Absent: firm, guarding, tenderness - Extremities Exam Extremities exam: Present: normal inspection, normal capillary refill. Absent: calf tenderness, edema - Neurological Exam Neurological exam: Present: alert, oriented X3 - Psychiatric Psychiatric exam: Present: normal affect, normal mood - Skin Skin exam: Present: normal color, warm, dry, other (Midsternal chest incision is healing well without dehiscence or drainage.) (Lower extremity incisions healing well without dehiscence or drainage.) Result/EKG - Labs CBC & BMP: 04/29/17 04:28 04/29/17 04:28 Lab Results: I have reviewed the past 24 hour labs Labs: Laboratory Results - last 24 hr 04/29/17 04/29/17 04:28 04:28 WBC 12.3 H RBC 3.90 Hgb 11.7 L Hct 34.9 L MCV 89.5 MCH 30 MCHC 33.5 RDW 14.3 Plt Count 301 D MPV 10.1 Neut % (Auto) 74.0 H Lymph % (Auto) 13.9 L [place] % (Auto) 10.1 Eos % (Auto) 0.7 Baso % (Auto) 0.2 Neut # (Auto) 9.1 H Lymph # (Auto) 1.7 [place] # (Auto) 1.2 H Eos # (Auto) 0.1 Baso # (Auto) 0.0 Immature Gran % 1.1 Nucleated RBC % 0.0 Immature Gran # 0.13 Nucleated RBCs # 0.00 Sodium 137 Potassium 4.3 Chloride 101 Carbon Dioxide 25 Anion Gap 15.3 H BUN 40 H Creatinine 1.50 H GFR Calculation 55 BUN/Creatinine Ratio 26.00 H Glucose 98 Calculated Osmolality 282.8 Calcium 8.8 Magnesium 2.3 Quality Measures - VTE Contraindication to Pharmacological VTE Prophylaxis: Active Bleeding Specialty Discharge - Follow Up or Referrals Follow up with: Amador Andrews [Physician] - 05/20/17 10:00 am Naif Curtis Jr. [Physician] - 05/20/17 9:00 am (AFTER APPT. GO STRAIGHT TO DR. ANDREWS'S OFFICE)
[2017-04-29 11:51] VITALS: BP 109/60
== END 2017-04-29 12:45 | disposition swing bed (61) | DRG 236 ==
LOC: N.ICU 18:30 → N.CVR 04-22 07:50 → N.TELES 04-23 09:41
PROVIDERS: ADMIT Thoracic Surgery (Cardiothoracic Vascular Surgery); ATTEND Thoracic Surgery (Cardiothoracic Vascular Surgery)